=== PATIENT | female | born 1970 | race Caucasian/White ===

== ENCOUNTER 2020-03-14 10:12 | Outpatient (REF) | payer MEDICAID, SELFPAY ==
--- NOTE | 2020-03-14 | MM_ITS ---
EXAMINATION: MM SCREENING DIGITAL BREAST TOMOSYNTHESIS, BILATERAL CLINICAL INFORMATION: Screening. Asymptomatic. The lifetime risk of breast cancer based on the Tyrer-Cuzick Model is 7%. COMPARISON: Mammography: 01/27/2019, 10/17/2016, 04/06/2015 TECHNIQUE: Digital breast tomosynthesis is performed in both the craniocaudal and mediolateral oblique views along with computer-aided detection (CAD). Synthesized 2D images are generated from the tomosynthesis. FINDINGS: The breasts are heterogeneously dense, which may obscure small masses (ACR BI-RADS breast composition Category c). There are scattered bilateral punctate round calcifications in each breast similar to prior study. There is no architectural abnormality. The axilla and skin contours are unremarkable. Right breast has 0.6 cm smooth partially obscured nodularity on MLO view along posterior nipple line, 7 cm from the right nipple not seen with certainty on prior studies. The left breast has smooth 0.5 x 0.7 cm macrolobulated nodularity on CC view central breast 2 cm from nipple. The left breast also has 0.7 cm smooth nodular asymmetry on CC view mid outer quadrant 6.6 cm from nipple. Patient will be recalled for additional targeted ultrasound to further characterize bilateral areas of possible fibrocystic change. IMPRESSION: 1. Right: Nodular asymmetry under 1 cm along posterior nipple line MLO view 7 cm from nipple. 2. Left: Nodular asymmetry retroareolar and outer quadrant, each under 1 cm. ASSESSMENT: BI-RADS 0: Incomplete - Need Additional Imaging Evaluation RECOMMENDATION: 1. Bilateral targeted ultrasound breast. 2. Radiology department staff will contact the patient for additional imaging. This patient's information was entered into a reminder system with a target due date for their next mammogram.
== END 2020-03-14 10:13 | disposition home or self-care (01) ==
LOC: HO.MAMMO 10:12
PROVIDERS: PCP Nurse Practitioner Family; Visit Provider Nurse Practitioner Family
DX: Z12.31 Encounter for screening mammogram for malignant neoplasm of breast (principal)
CPT/HCPCS: 77063; 77067

== ENCOUNTER 2020-03-17 11:45 | Outpatient (REF) | payer MEDICAID, SELFPAY ==
--- NOTE | 2020-03-17 | US_ITS ---
EXAMINATION: US DIAGNOSTIC ULTRASOUND BREAST, RIGHT US DIAGNOSTIC ULTRASOUND BREAST, LEFT CLINICAL INFORMATION: Recall from screening for partially obscured smooth nodule posterior right breast and similar nodularity retroareolar and outer left breast. COMPARISON: Mammography 03/14/2020, 01/27/2019, targeted left breast ultrasound 03/20/2019. TECHNIQUE: Ultrasound of each breast is targeted to the areas of recent mammographic concern. Grayscale imaging and color Doppler are performed without and with harmonics. FINDINGS: Right: There is a simple cyst central 9:00 position mid to posterior depth measuring 0.6 x 0.5 cm corresponding to the nodule on mammography. There is no solid mass or architectural abnormality. No additional findings. Left: There are multiple small simple cysts, largest outer quadrant 3:00 position 4 cm from nipple corresponding to finding on mammography and measuring 0.8 x 0.6 cm. The largest cyst anterior left breast is 0.9 x 0.4 cm corresponds to the retroareolar nodularity on mammography. There is also a intradermal lesion again seen retroareolar 12:00 left breast measuring 0.8 x 0.5 cm compared with prior left breast ultrasound measurements 1.0 x 0.9 x 0.5 cm. There is no solid mass or architectural abnormality. No additional findings. Results are discussed with the patient at time of visit using an strategic planning director. IMPRESSION: 1. Right: Simple cyst 0.6 cm corresponding to nodule on recent mammography. 2. Left: Multiple small simple cysts, 2 of which correspond to nodules on recent mammography. Previously described intradermal cyst retroareolar left breast is slightly decreased in size since prior ultrasound 03/20/2019. ASSESSMENT: BI-RADS 2: Benign RECOMMENDATION: Routine annual mammography screening. This patient's information was entered into a reminder system with a target due date for their next mammogram.
== END 2020-03-17 11:46 | disposition home or self-care (01) ==
LOC: HO.MAMMO 11:45
PROVIDERS: PCP Nurse Practitioner Family; Visit Provider Nurse Practitioner Family
DX: N64.89 Other specified disorders of breast (principal)
CPT/HCPCS: 76642

== ENCOUNTER 2020-07-26 14:30 | Outpatient (REF) | payer MEDICAID, SELFPAY ==
[2020-07-27 09:20] LABS: BV Int Neg Control Negative (Negative); BV Int Pos Control Positive (Positive)
[2020-07-27 14:52] LABS: C. trachomatis RNA TMA NOT DETECTED (NOT DETECTED); N. gonorrhoeae RNA TMA NOT DETECTED (NOT DETECTED)
== END 2020-07-26 14:31 | disposition home or self-care (01) ==
LOC: HO.LAB 14:30
PROVIDERS: PCP Nurse Practitioner Family; Visit Provider Advanced Practice Midwife
DX: Z01.419 Encounter for gynecological examination (general) (routine) without abnormal findings (principal); R10.2 Pelvic and perineal pain; Z20.2 Contact with and (suspected) exposure to infections with a predominantly sexual mode of transmission
CPT/HCPCS: 36415; 87480; 87491; 87510; 87591; 87660

== ENCOUNTER 2021-05-18 13:46 | Outpatient (REF) | payer MEDICAID, SELFPAY ==
--- NOTE | ~2021-05-18 | US_ITS ---
EXAMINATION: US PELVIS CLINICAL INFORMATION: Right ovarian cyst COMPARISON: Ultrasound of 02/09/2020 TECHNIQUE: Ultrasound of the pelvis is performed using both transabdominal and transvaginal transducers along with Doppler. Transvaginal imaging is performed due to inadequate visualization transabdominally. FINDINGS: Uterus: The uterus is retroverted and measures 9.8 x 4.1 x 5.0 cm, with an endometrial thickness of 6 mm. The uterus is smooth in contour and has normal myometrial echogenicity. A intramural posterior fundal fibroid measuring 22 mm is again evident. Adnexa: Left ovary measures 2.5 x 2.0 x 1.2 cm corresponding to a volume of 3.2 mL. There are no adnexal masses. The right ovary is surgically absent. There is no free fluid in the cul-de-sac. US/US pelvic and transvaginal IMPRESSION: 1. Posterior fundal fibroid. 2. Surgically absent right ovary. 3. Unremarkable left ovary.
== END 2021-05-18 13:47 | disposition home or self-care (01) ==
LOC: HO.HMGCX 13:46
PROVIDERS: Visit Provider Registered Nurse
DX: N94.89 Other specified conditions associated with female genital organs and menstrual cycle (principal)
CPT/HCPCS: 76830; 76856

== ENCOUNTER 2021-06-20 13:59 | Outpatient (REF) | payer MEDICAID, SELFPAY ==
--- NOTE | ~2021-06-20 | MM_ITS ---
EXAMINATION: MM SCREENING DIGITAL BREAST TOMOSYNTHESIS, BILATERAL CLINICAL INFORMATION: Screening. Asymptomatic. The lifetime risk of breast cancer based on the Tyrer-Cuzick Model is 9%. COMPARISON: Mammography: 03/14/2020, 01/27/2019, 10/17/2016; bilateral breast ultrasound 03/17/2020. TECHNIQUE: Digital breast tomosynthesis is performed in both the craniocaudal and mediolateral oblique views along with computer-aided detection (CAD). Synthesized 2D images are generated from the tomosynthesis. FINDINGS: The breasts are heterogeneously dense, which may obscure small masses (ACR BI-RADS breast composition Category c). Parenchymal pattern is similar to prior studies. Fibrocystic changes similar to prior exam. There is no developing density or architectural abnormality. Again, there are scattered bilateral punctate round calcifications in both breasts. No significant mass. The axilla and skin contours are unremarkable. No significant changes. MM/MM tomosynthesis screening BI IMPRESSION: No significant changes from prior studies. ASSESSMENT: BI-RADS 2: Benign RECOMMENDATION: Routine annual mammography screening. This patient's information was entered into a reminder system with a target due date for their next mammogram.
== END 2021-06-20 14:00 | disposition home or self-care (01) ==
LOC: HO.MAMMO 13:59
PROVIDERS: Visit Provider Registered Nurse
DX: Z12.31 Encounter for screening mammogram for malignant neoplasm of breast (principal)
CPT/HCPCS: 77063; 77067

== ENCOUNTER 2021-11-29 12:46 | Outpatient (REF) | payer MEDICAID, SELFPAY ==
[2021-11-29 13:09] LABS: COVID-19 Test Positive (Negative)
== END 2021-11-29 12:47 | disposition home or self-care (01) ==
LOC: HO.LAB 12:46
PROVIDERS: Visit Provider Internal Medicine
DX: Z20.822 Contact with and (suspected) exposure to COVID-19 (principal)
CPT/HCPCS: 87635; C9803

== ENCOUNTER 2021-12-08 11:25 | Outpatient (REF) | payer MEDICAID, SELFPAY ==
[2021-12-08 11:58] LABS: COVID-19 Test Positive (Negative); IDNOW Serial# 55D5AD1C
== END 2021-12-08 11:26 | disposition home or self-care (01) ==
LOC: HO.LAB 11:25
PROVIDERS: Visit Provider Internal Medicine
DX: Z20.822 Contact with and (suspected) exposure to COVID-19 (principal)
CPT/HCPCS: 87635; C9803

== ENCOUNTER 2023-10-04 15:08 | Outpatient (REF) | payer OTHER, SELFPAY ==
[2023-10-04 16:07] LABS: MANUAL DIFF FLAG NO
[2023-10-04 16:19] LABS: Basophils Percent Auto 0.2 % (0-2); Eosinophils Absolute Auto 0.1 X10*3/uL (0.0-0.4); Eosinophils Percent Auto 0.8 % (0-4); Hematocrit 33.8 % (37.0-47.0); Hemoglobin 11.2 g/dl (12.0-16.0); Imm Gran Abs Auto 0.03 X10*3/uL (0.00-0.03); Imm Gran Pct Auto 0.3 % (0.0-0.4); Lymphocytes Absolute Auto 2.3 X10*3/uL (1.2-4.9); Lymphocytes Percent Auto 25.8 % (20-40); Mean Corpuscular HGB Conc 33.1 g/dl (31.0-35.0); Mean Corpuscular Hemoglobin 27.6 pg (27.0-33.0); Mean Corpuscular Volume 83.3 fL (80.0-98.0); Mean Platelet Volume 10.4 fL (9.4-12.3); Monocytes Absolute Auto 0.6 X10*3/uL (0.1-1.2); Neutrophils Absolute Auto 5.9 x10*3/uL (2.0-8.3); Neutrophils Percent Auto 65.9 % (45-73); Platelet Count 300 X10*3/uL (160-400); Red Blood Count 4.06 X10*6/uL (4.20-5.50); Red Cell Distribution Width 13.1 % (11.0-16.0); White Blood Count 8.9 X10*3/uL (4.8-10.8)
[2023-10-04 18:58] LABS: Alanine Aminotransferase 34 U/L (0-31); Albumin Level 4.3 g/dL (3.5-5.0); Alkaline Phosphatase 56 U/L (39-117); Anion Gap 14 (12-20); Aspartate Amino Transferase 23 U/L (5-31); Bilirubin Total 0.2 mg/dL (0.0-1.0); Blood Urea Nitrogen 15 mg/dL (9-16); Calcium 9.9 mg/dL (8.4-10.2); Carbon Dioxide 24 mmol/L (22-29); Chloride 103 mmol/L (96-108); Cholesterol 166 mg/dL (<200); Estimated Glomerular Filt Rate > 60; Glucose Random 84 mg/dL (60-115); HDL Cholesterol 54 mg/dL (>40); LDL Cholesterol Calculated 83 mg/dL (<100); Potassium 3.9 mmol/L (3.3-5.1); Sodium 137 mmol/L (135-145); Total Protein 7.4 g/dL (6.5-8.0); Triglycerides 148 mg/dL (<150)
[2023-10-05 03:31] LABS: HIV AB/AG Nonreactive (Nonreactive); HIV Num 1 0.04 S/CO (0.00-0.99); ~HepC Num1 0.24 S/CO (0.00-0.79); ~Hepatitis C Antibody Nonreactive (Nonreactive)
== END 2023-10-04 15:09 | disposition home or self-care (01) ==
LOC: HO.HHCL 15:08
PROVIDERS: Visit Provider General Practice
DX: Z00.00 Encounter for general adult medical examination without abnormal findings (principal)
CPT/HCPCS: 36415; 80053; 80061; 85025; 86803; 87389

== ENCOUNTER 2023-10-17 14:14 | Outpatient (REF) | payer OTHER, SELFPAY ==
--- NOTE | ~2023-10-17 | MM_ITS ---
EXAMINATION: MM SCREENING DIGITAL BREAST TOMOSYNTHESIS, BILATERAL CLINICAL INFORMATION: Screening. Asymptomatic. COMPARISON: Mammography: This study is compared with prior exams dating back to 2019. TECHNIQUE: Digital breast tomosynthesis is performed in both the craniocaudal and mediolateral oblique views along with computer-aided detection (CAD). Synthesized 2D images are generated from the tomosynthesis. FINDINGS: The breasts are heterogeneously dense, which may obscure small masses (ACR BI-RADS breast composition Category c). There are no significant masses, abnormal calcifications, or other abnormalities. There are bilateral, benign calcifications. MM/MM tomosynthesis screening BI IMPRESSION: No mammographic evidence of malignancy. ASSESSMENT: BI-RADS BI-RADS 2 - Benign Findings RECOMMENDATION: Routine annual mammography screening. 1 year F/U This examination should not preclude the clinical evaluation of a suspicious palpable abnormality. This patient's information was entered into a reminder system with a target due date for their next mammogram.
== END 2023-10-17 14:15 | disposition home or self-care (01) ==
LOC: HO.MAMMO 14:14
PROVIDERS: PCP General Practice; Visit Provider General Practice
DX: Z12.31 Encounter for screening mammogram for malignant neoplasm of breast (principal)
CPT/HCPCS: 77063; 77067

== ENCOUNTER → 2023-10-17 14:30 | Outpatient (BNV) | payer OTHER, SELFPAY | PROVIDERS: PCP General Practice; Visit Provider Radiology Diagnostic Radiology | DX: Z12.31 Encounter for screening mammogram for malignant neoplasm of breast (principal) | CPT/HCPCS: 77063; 77067 ==

== ENCOUNTER 2024-03-14 13:42 | Emergency (ER) | payer OTHER, SELFPAY ==
--- NOTE | ~2024-03-14 | US_ITS ---
EXAMINATION: US PELVIS CLINICAL INFORMATION: Left pelvic pain. COMPARISON: Pelvic ultrasound dated May 18, 2021. CT scan of the pelvis dated September 27, 2016. TECHNIQUE: Ultrasound of the pelvis is performed using both transabdominal and transvaginal transducers along with Doppler. Transvaginal imaging is performed due to inadequate visualization transabdominally. FINDINGS: Uterus: The uterus is anteverted and measures 10.4 x 4.8 x 5.1 cm. The double wall endometrial thickness is 7 mm. 2.3 x 2.0 x 1.7 cm intramural/subserosal leiomyoma involving the posterior aspect of the body of the uterus. 0.9 x 0.7 x 0.6 cm exophytic subserosal leiomyoma location of which is not clearly demonstrated by the technologist. The uterus otherwise appears unremarkable in echotexture. Small amount of fluid in the cervical canal, nonspecific. Adnexa: Left ovary measures 2.0 x 1.7 x 1.7 cm and contains a benign-appearing simple cyst or follicle measuring less than 2 cm. No evidence of torsion. Right ovary not visualized by the technologist. No significant free pelvic fluid identified. US/US pelvic and transvaginal IMPRESSION: No acute finding. Electronically signed by: Vitaly Sanchez MD 03/14/2024 04:18 PM EDT
[2024-03-14 13:46] VITALS: BP 138/81; PULSE 75; RESP 16; TEMP 36.6; O2SAT 100; BMI 26.5
--- NOTE | 2024-03-14 13:48 | ED.ABDPAIN ---
HPI - Abdominal Pain General Chief Complaint: Abdominal Pain Stated Complaint: abd pain Time Seen by Provider: 03/14/24 17:04 Source: patient Mode of arrival: ambulatory Limitations: no limitations History of Present Illness ED Provider: Moira HPI narrative: Patient is a 53-year-old female with history of right oophorectomy due to ovarian cysts presenting to the emergency department with complaint of left lower abdominal pain for the past week. She denies fevers, nausea, vomiting, diarrhea or constipation. Does report urinary frequency and mild dysuria. States that pain increases during urination. Denies vaginal bleeding or other vaginal discharge. Pain improves with ibuprofen but returns once medication wears off. Denies any concern for STIs. MD elicited complaint: abdominal pain Pertinent past history: other Onset (ago): week(s) Pain Consistency: colicky Location: LLQ Severity: moderate Quality: aching Radiation: none Migration to: no migration Exacerbating factors: other (Urination) Associated symptoms: denies other symptoms Treatments prior to arrival: NSAIDs Related Data Previous Rx's ?Medication ?Instructions ?Recorded metronidazole 500 mg tablet 500 mg PO BID 7 days #14 tabs 08/01/20 (Flagyl) cefuroxime axetil 250 mg tablet 250 mg PO BID #14 tabs 03/14/24 Allergies Allergy/AdvReac Type Severity Reaction Status Date / Time No Known Allergies Allergy Verified 03/14/24 13:48 Review of Systems Review of Systems As per HPI. Yes all other systems are reviewed and are negative Constitutional: Reports as per HPI PMFSH Past Medical History Medical History Anemia Hx of migraine headaches Ovarian cyst Surgical History History of salpingo-oophorectomy Hx of section Hx of tubal ligation Family History Family History Family/Other Breast cancer Family/Other Cancer Social History Social History Alcohol intake: never Advance Directives: No Advance Directives Information Provided: No Physical Exam ED Vital Signs: Vital Signs - 24 hr 03/14/24 13:46 Temperature 98 F Pulse Rate 75 Respiratory Rate 16 Blood Pressure 138/81 Pulse Oximetry 100 Oxygen Delivery Method Room Air BMI result Body Mass Index 26.5 Vital signs have been reviewed and appear to be correct. Blood pressure normal. Heart rate normal. Respiratory rate normal. Temperature normal. Oxygen saturation normal. Const General: cooperative, healthy appearing and no acute distress Orientation/consciousness: oriented to person, oriented to place, oriented to time and patient oriented x3 Limitations: no limitations HENMT Head: Yes normocephalic and Yes atraumatic Ears: external ears normal General nose exam: Normal external nose present Face and sinus: Yes face symmetric Mouth: oropharynx normal and moist mucous membranes Throat: Yes uvula midline Eyes Pupils: Equal, round and reactive pupils present Neck Neck: Yes normal visual inspection and Yes supple Resp Effort & Inspection: normal respiratory effort and able to speak in complete sentences Auscultation: clear to auscultation bilaterally Cardio Rate: regular rate Rhythm: regular rhythm Heart sounds: S1 normal heart sound present and S2 normal heart sound present GI Palpation (GI): Soft to palpation, Tenderness to palpation present (GI) in the LLQ (mild) and suprapubicly (mild), no guarding and No Rebound tenderness present Auscultation: normoactive bowel sounds General: Yes no CVA tenderness Back/Spine/Pelvis Back: no CVA tenderness Skin General skin exam: elasticity normal and turgor normal Neuro General: oriented to person, oriented to place, oriented to time, patient oriented x3, moves all extremities, no focal motor deficits and CN's II-XI intact bilaterally Cranial nerves: Yes Equal, round and reactive pupils present Cognition (Neuro): normal cognition Extrem General: Yes full ROM, Yes no pedal edema and Yes no calf tenderness Psych Mental Status: mental status grossly normal Affect: normal affect Thought process: Normal thought process present Course Course Course Narrative: This is a Rapid Medical Examination (RME) performed by Ana María Ashby PA-C in triage. Full HPI, ROS, assessment and treatment plan per primary provider in the Main ED. 53 yo female hx of ovarian cysts (s/p right oophorectomy) presents to the ED today from [facility] for eval of lower abd/pelvic pain (L>R) x1 wk. takes motrin w/ temporary relief. denies dysuria, hematuria, vaginal discharge or bleeding. Plan: labs, UA, pelvic US Medical Decision Making Medical Decision Making [facility] Narrative: Patient is a 53-year-old female with history of right oophorectomy due to ovarian cysts presenting to the emergency department with complaint of left lower abdominal pain for the past week. On exam patient is awake, A+Ox3, VS WNL, afebrile, normal neurological exam without focal deficits, physical exam findings as above. Given reported symptoms and physical exam findings, initial differential includes ovarian cyst, UTI, uterine fibroid. Labs notable for anemia not at transfusion level, no evidence of [place]. Ultrasound notable for simple cyst less than 2 cm to left ovary, no evidence of torsion, 2 cm leiomyoma in uterus, no acute findings. My interpretation is in agreement with the radiologist's interpretation. Urinalysis notable for trace leukocytes, 4+ bacteria. Given report of urinary symptoms, will treat with cefuroxime. Discussed with patient that she should follow-up with her OBGYN. Return precautions discussed at bedside. Patient verbalized understanding of and agreement with plan. Differential Diagnosis Differential Diagnoses: The differential diagnosis associated with the presentation includes As per [facility] Admission/Observation Consideration of admission/observation: Escalation of care including admission/observation considered Patient would have been admitted to the hospital had their work up had any findings where hospital admission was appropriate and their clinical presentation warranted hospital admission. Lab Data [facility] Lab Attestation statement: I reviewed the patient's lab results. As per [facility] 03/14/24 14:11 03/14/24 14:11 Labs: Lab Results 03/14/24 03/14/24 Range/Units 14:11 15:14 WBC 7.5 (4.8-10.8) X10*3/uL RBC 3.79 L (4.20-5.50) X10*6/uL Hgb 10.4 L (12.0-16.0) g/dl Hct 31.5 L (37.0-47.0) % MCV 83.1 (80.0-98.0) fL MCH 27.4 (27.0-33.0) pg MCHC 33.0 (31.0-35.0) g/dl RDW 13.2 (11.0-16.0) % Plt Count 259 (160-400) X10*3/uL MPV 9.9 (9.4-12.3) fL Immature Gran % (Auto) 0.4 (0.0-0.4) % Neut % (Auto) 60.4 (45-73) % Lymph % (Auto) 30.3 (20-40) % [place] % (Auto) 7.9 (2-11) % Eos % (Auto) 0.7 (0-4) % Baso % (Auto) 0.3 (0-2) % Lymph # (Auto) 2.3 (1.2-4.9) X10*3/uL [place] # (Auto) 0.6 (0.1-1.2) X10*3/uL Eos # (Auto) 0.1 (0.0-0.4) X10*3/uL Baso # (Auto) 0.0 (0.0-0.2) X10*3/uL Abs Immat Gran (auto) 0.03 (0.00-0.03) X10*3/uL Absolute Neuts (auto) 4.5 (2.0-8.3) x10*3/uL Absolute Nucleated RBC 0.000 (0.0-0.012) X10*3/uL Nucleated RBC % (auto) 0.0 (0.0-0.2) /100WBC Sodium 140 (135-145) mmol/L Potassium 4.0 (3.3-5.1) mmol/L Chloride 107 (96-108) mmol/L Carbon Dioxide 27 (22-29) mmol/L Anion Gap 10 L (12-20) BUN 17 H (9-16) mg/dL Creatinine 0.62 (0.5-1.4) mg/dL Estim Creat Clear Calc 84.3 Estimated GFR > 60 Random Glucose 85 (60-115) mg/dL Calcium 9.1 D (8.4-10.2) mg/dL Magnesium 2.0 (1.6-2.6) mg/dL Total Bilirubin 0.2 (0.0-1.0) mg/dL AST 16 (5-31) U/L ALT 19 (0-31) U/L Alkaline Phosphatase 49 (39-117) U/L Total Protein 6.6 (6.5-8.0) g/dL Albumin 3.9 (3.5-5.0) g/dL Beta HCG, Quant < 2 mIU/mL Urine Color Yellow Urine Appearance Clear Urine pH 6.5 (5.0-9.0) Ur Specific [place] 1.010 (1.005-1.025) Urine Protein Negative (Neg-Trace) mg/dL Urine Glucose (UA) Negative (Negative) mg/dL Urine Ketones Negative (Negative) mg/dL Urine Blood Negative (Negative) Urine Nitrite Negative (Negative) Ur Leukocyte Esterase Trace H (Negative) Urine RBC 0-2 (0-2) /HPF Urine WBC 0-5 (0-5) /HPF Ur Squamous Epith Cells 6-10 (0-2) /HPF Urine Bacteria 4+ (None Seen) Hyaline Casts 0-2 (0-2) /LPF Independent Interpretation I performed an independent interpretation of an: Ultrasound Interpretation: Ultrasound notable for simple cyst less than 2 cm to left ovary, no evidence of torsion, 2 cm leiomyoma in uterus, no acute findings. Radiology Impression Discussion of test interpretation with radiology: I have reviewed the radiologist's reading. Radiologist Impression: US/US pelvic and transvaginal IMPRESSION: No acute finding. External Record Review External record reviewed: Inpatient record, Office record and Outpatient record Prescription Management I considered prescription management with: Antibiotic Discharge Plan Discharge Clinical Impression: Urinary tract infection, Uterine fibroid Patient Disposition: Home, Self-Care Instructions: Urinary Tract Infection in Women (DC), Uterine Artery Embolization for Fibroids (DC) Additional Instructions: You were evaluated in the emergency department today for abdominal pain. Your urinalysis showed evidence of a urinary tract infection you are being treated with antibiotics. Please complete the full course as prescribed even if your symptoms improve. Your ultrasound showed evidence of a uterine fibroid. You can apply warm compresses to your abdomen, use Tylenol/ibuprofen as needed. If your pain persists after treatment for the UTI, follow-up with your CHIEF BUSINESS DEVELOPMENT OFFICER. Return to the emergency department if you develop severe pain, fever, persistent vomiting, heavy vaginal bleeding or any other concerning symptoms. Prescriptions: New cefuroxime axetil 250 mg tablet 250 mg PO BID Qty: 14 0RF No Action metronidazole [Flagyl] 500 mg tablet 500 mg PO BID 7 Days Qty: 14 0RF Print Language: Hebrew
[2024-03-14 14:17] LABS: MANUAL DIFF FLAG NO
[2024-03-14 14:36] LABS: Basophils Percent Auto 0.3 % (0-2); Eosinophils Absolute Auto 0.1 X10*3/uL (0.0-0.4); Eosinophils Percent Auto 0.7 % (0-4); Hematocrit 31.5 % (37.0-47.0); Hemoglobin 10.4 g/dl (12.0-16.0); Imm Gran Abs Auto 0.03 X10*3/uL (0.00-0.03); Imm Gran Pct Auto 0.4 % (0.0-0.4); Lymphocytes Absolute Auto 2.3 X10*3/uL (1.2-4.9); Lymphocytes Percent Auto 30.3 % (20-40); Mean Corpuscular Hemoglobin 27.4 pg (27.0-33.0); Mean Corpuscular Volume 83.1 fL (80.0-98.0); Mean Platelet Volume 9.9 fL (9.4-12.3); Monocytes Absolute Auto 0.6 X10*3/uL (0.1-1.2); Monocytes Percent Auto 7.9 % (2-11); Neutrophils Absolute Auto 4.5 x10*3/uL (2.0-8.3); Neutrophils Percent Auto 60.4 % (45-73); Platelet Count 259 X10*3/uL (160-400); Red Blood Count 3.79 X10*6/uL (4.20-5.50); Red Cell Distribution Width 13.2 % (11.0-16.0); White Blood Count 7.5 X10*3/uL (4.8-10.8)
[2024-03-14 14:37] LABS: Alanine Aminotransferase 19 U/L (0-31); Albumin Level 3.9 g/dL (3.5-5.0); Alkaline Phosphatase 49 U/L (39-117); Anion Gap 10 (12-20); Aspartate Amino Transferase 16 U/L (5-31); Bilirubin Total 0.2 mg/dL (0.0-1.0); Blood Urea Nitrogen 17 mg/dL (9-16); Calcium 9.1 mg/dL (8.4-10.2); Carbon Dioxide 27 mmol/L (22-29); Chloride 107 mmol/L (96-108); Creatinine Clr Calc Pharmacy 84.3; Estimated Glomerular Filt Rate > 60; Glucose Random 85 mg/dL (60-115); Sodium 140 mmol/L (135-145); Total Protein 6.6 g/dL (6.5-8.0)
[2024-03-14 14:44] LABS: HCG Quantitative < 2 mIU/mL
[2024-03-14 15:21] LABS: Appearance Urine Clear; Color Urine Yellow; Glucose Urine UA Negative (Negative); Leukocyte Esterase Urine Trace (Negative); Nitrite Urine Negative (Negative); PH 6.5 (5.0-9.0); UMIC TRIGGER UACC YES; Urine Blood Negative (Negative); Urine Ketones Negative (Negative); Urine Protein Negative (Neg-Trace)
[2024-03-14 15:29] LABS: Bacteria Urine 4+ (None Seen); Hyaline Casts Urine 0-2 /LPF (0-2); RBC Urine 0-2 /HPF (0-2); WBC Urine 0-5 /HPF (0-5)
[2024-03-14 18:33] VITALS: BP 134/78; PULSE 72; RESP 18; TEMP 36.6; O2SAT 99
[2024-03-14] MEDS: cefuroxime axetiL 250 MG TABLET PO (18:37)
[2024-03-14 18:43] VITALS: BP 134/78; PULSE 72; RESP 18; TEMP 36.6; O2SAT 99
== END 2024-03-14 18:43 | disposition home or self-care (01) ==
PROVIDERS: Physician Assistant Medical; Emergency Provider Emergency Medicine; PCP General Practice
DX: N39.0 Urinary tract infection, site not specified (principal); D25.9 Leiomyoma of uterus, unspecified; R10.32 Left lower quadrant pain
CPT/HCPCS: 36415; 76830; 76856; 80053; 81001; 83735; 84702; 85025; 99283; 99284

== ENCOUNTER 2024-07-06 09:35 | Outpatient (REF) | payer OTHER, SELFPAY ==
--- OUTSIDE RECORDS SUMMARY | 2024-07-06 09:58 | XMS_ITS | Encounter Summary ---
Author Organization [employer] Address [address] [place] [address] Care Team Providers Care Iron Assorter Name Role Phone Lexi Lares MD Primary Care Provider [phone] Reason for Visit * Reason Onset Date Comments telephone call 07/03/2024 Encounter Details Date Type Department Care Team ([facility] st Contact Info) Description 07/03/2024 Telephone [facility] [address], [place] [phone] Lexi Lares MD [address] [place], [place] [phone] telephone call Social History Tobacco Use Types Packs/Day Years Used Date Smoking Tobacco: Never Smokeless Tobacco: Never Alcohol Use Standard Drinks/Week Comments Never 0 (1 standard drink = 0.6 oz pur e alcohol) Depression Answer Date Recorded Patient Health Questionnaire-9 Score 0 10/04/2023 Patient Health Questionnaire-9 Score 0 10/04/2023 Last PHQ-9: Questionnaire Data Not on file 0 10/04/2023 Housing Stability Answer Date Recorded What is your housing situation today? I have chalo ball 10/04/[address] you li ve. Do you have problems with any of the following? None of the above 10/04/2023 Food Insecurity Answer Date Recorded Within the past 12 months, y ou worried that your food would run out before you got money to buy more: Never True 10/04/2023 Within the past 12 months,th e food you bought just didn't last and you didn't have enough money to get more: Never True 08/2023 Transportation Answer Date Recorded In the past 12 months, has l ack of transportation kept you from medical appts, meetings, work or from getting things needed for daily living? No 10/04/2023 Utilities Answer Date Recorded In the past 12 months, has t he electric, gas, oil or water company threatened to shut off services in your home? No 06/23/2024 Depression Answer Date Recorded Patient Health Questionnaire-2 Score 0 10/04/2023 Internet Access Answer Date Recorded Internet Access Q1 Yes 06/23/2024 Internet Access Q2 Not on file 06/23/2024 Comments Unknown Sex and Gender Information Value Date Recorded Sex Assigned at Female 04/02/2022 10:15 AM EDT Legal Sex Female 10:15 AM EDT Gender Identity Female 04/02/2022 10:15 AM EDT Sexual Orientation Straight 04/02/2022 10 :15 AM EDT documented as of this encounter Miscellaneous Notes * Telephone Encounter - Urmila Leees - 07/03/2024 11:02 AM EST Pt walked in requesting to change her pcp from to Chris Venegas , pt said she didn't have any complaints she just liked her from her visit from today. documented in this encounter Plan of Treatment Not on file documented as of this encounter Visit Diagnoses Not on filedocumented in this encounter Additional Health Concerns Assessment Noted Time PHQ-9 Depression Total Score: 0 10/04/19 24 2:57 PM EDT documented as of this encounter Care Teams Iron Assorter Relationship Specialty Start Date End Date Lexi Lares MD [address] [place] [phone] PCP - General Family Medicine 03/12/23 documented as of this encounter
--- OUTSIDE RECORDS SUMMARY | 2024-07-06 09:58 | XMS_ITS | Clinical Summary ---
Author Organization [employer] Address [address] [facility] 7[address] [place] [address] Care Team Providers Care Electronic Assembly Name Role Phone Lexi Lares MD Primary Care Provider [phone] Allergies Active Allergy Reactions Criticality Noted Date Comments Shellfish-Derived Products 7 Medications Acetaminophen Extra Strength 500 MG tabletIndications :COVID TAKE 1 TABLET BY MOUTH EVERY 8 HOURS NEEDED FOR MILD PAIN ALTERNATE WITH IBUPROFEN 90 tablet Active EPINEPHrine (Epipen) 0.3 MG/0.3ML injection syringe Inject 0.3 mg into the shoulder, thigh, or buttocks. Active ferrous gluconate (Fergon) 324 (38 Fe) MG tablet Take 1 tablet every Saturday, Saturday, and Saturday by mouth. Take with orange juice to increase absorption. Active fluticasone (Flonase) 50 MCG/ACT nasal sprayIndications: Otitis of right ear Administer 1-2 sprays into each nostril 2 times daily. Shake gently. Before first use, prime pump. After use, clean tip and replace cap. 16 g Active cetirizine (ZyrTEC) 10 MG tabletIndications :Otitis of right ear Take 1 tablet (10 mg) by mouth Once per day. 30 tablet 024 Active ibuprofen 600 MG tabletIndications :Chronic nonintractable headache, unspecified headache type Take 1 tablet (600 mg) by mouth every 8 (eight) hours if needed for headaches. 90 tablet 025 2024 Active cholecalciferol (Vitamin D-3) 50 MCG (2000 UT) capsuleIndication s:Healthcare maintenance Take 1 capsule (50 mcg) by mouth Once per day. 30 capsule 11 Active ferrous gluconate (Fergon) 324 (38 Fe) MG tabletIndications :Iron deficiency Take 1 tablet (324 mg) by mouth with breakfast. 30 tablet 11 025 2025 Active venlafaxine XR (Effexor XR) 37.5 MG 24 hr capsuleIndication s:Hot flashes due to menopause TAKE 1 CAPSULE(37.5 MG) BY MOUTH IN THE MORNING. DO NOT CRUSH OR CHEW 30 capsule 1 023 2024 Discontinued(S nita effects) ibuprofen 600 MG tabletIndications :COVID TAKE 1 TABLET BY MOUTH EVERY 8 HOURS NEEDED FOR PAIN, FEVER, HEADACHE, BODY ACHES. ALTERNATE WITH ACETAMINOPHEN 90 tablet 024 2024 Discontinued(R eorder (will not trigger notification to Pharmacy)) amitriptyline (Elavil) 10 MG tablet take 1 Tablet by oral route every bedtime headache prevention 022 2024 Discontinued(S nita effects) cholecalciferol (Vitamin D-3) 50 MCG (1999 UT) capsule Take 1 capsule by mouth at bed time. 021 2024 Discontinued(R eorder (will not trigger notification to Pharmacy)) amoxicillin-clavu lanate (Augmentin) 875-125 MG tabletIndications :Otitis of right ear Take 1 tablet by mouth 2 times daily for 7 days. 14 tablet 024 2024 Discontinued(T herapy completed) Active Problems Problem Noted Date Diagnosed Date Otitis of right ear 05/28/2024 Assessment & Plan (05/28/2024 10:25 AM EST): Symptomatology and physical examination indicative of this Plan: Antihistaminics, Nasal Steroids, Abx Rapid Flu and Covid Negative Follow up if worsening or no improvement Vitamin D deficiency 03/06/2023 Onychomycosis 03/06/2023 History of right salpingo-oophorectomy Seasonal allergic rhinitis 04/21/2015 Encounters Date Type Department Care Team Description 07/03/2024 10:30 AM EST Office Visit [facility] [address] [place] [phone] Chris Venegas CNP Chronic nonintractable headache, unspecified headache type (Primary Dx); Healthcare maintenance; Iron deficiency 07/03/2024 Telephone [facility] [address] [place] [phone] Lexi Lares MD telephone call 06/23/2024 Patient Outreach [facility] [address] [place] [address] [phone] Lexi Lares MD Pre-visit Planning (SDOH Screening negative and Tobacco screening negative) 06/04/[address] [phone] Lexi Lares MD Chart Prep 05/28/2024 10:20 AM EST Office Visit [facility] [address] [place] [phone] Arnulfo Moser MD Otitis of right ear (Primary Dx) 05/28/[address] [phone] Lexi Lares MD telephone call from Last 3 Months Immunizations Name Administration Dates Next Due Hep A, Adult 05/05/2021,05/21/2019 Hep B, Adolescent or Pediatric 07/13/2003,2002,02/20/2002 Hep B, adult 02/15/2014 Influenza Injectable Quadriv alant Preservative Free IIV4 MDCK 03/02/2023,02/24/2022 Influenza injectable quadriv alent preservative free 02/28/2021,02/28/2020,02/24/2019 Influenza, IIV3, injectable 02/15/2014 Pfizer Covid-19 Vaccine 12+ 02/24/2022 Pfizer Covid-19 Vaccine 12+ Bivalent 02/24/2022 TD (adult), 2 Lf tetanus tox oid, preservative free, adsorbed 05/05/2021,04/02/2006,07/06/2004 Tdap 12/14/2010 Zoster, Recombinant 12/23/2022,10/21/2022 Social History Tobacco Use Types Packs/Day Years Used Date Smoking Tobacco: Never Smokeless Tobacco: Never Tobacco Cessation:Counseling Given: Not Answered Alcohol Use Standard Drinks/Week Comments Never 0 [...] Orientation Straight 04/02/2022 10 :15 AM EDT Last Filed Vital Signs Vital Sign Reading Time Taken Comments Blood Pressure 132/81 07/03/2024 10:32 AM EST Pulse 74 07/03/2024 10:32 AM EST Temperature 36.6 ??C (97.8 ??F) 07/03/2024 10:[address] Respiratory Rate 16 07/03/2024 10:32 AM EST Oxygen Saturation 97% 07/03/2024 10:32 AM EST Inhaled Oxygen Concentration - - Weight 59.9 kg (132 lb) 07/03/2024 10:32 AM EST Height 149.9 cm (4' 11 ) 07/03/2024 10:32 AM EST Body Mass Index 26.66 07/03/2024 10:32 AM EST Plan of Treatment Health Maintenance Due Date Last Done Comments CT Colonography 1972 Colonoscopy 1972 FIT 1972 FOBT 1972 Sigmoidoscopy 1972 Family Planning (PISQ) 1987 Hepatitis B Vaccines (2 of 3 - 19+ 3-dose series) 03/15/2014 02/15/2014, 07/13/2003, 06/19/2002, Additional history exists Pneumococcal Vaccine: 50+ Years (1 of 1 - PCV) 2022 Alcohol/Substance Use Screening 10/03/2024 10/04/2023 Depression Screening 10/03/2024 10/04/2023, 10/04/19 Tobacco Screening 10/03/2024 10/04/2023 SDOH Screening 06/23/2025 06/23/2024 Mammogram 10/16/2025 10/17/2023, 06/03, 01/28/2019 Pap Smear 10/23/2025 10/23/2022 Colorectal Cancer Screening 10/21/2026 FIT DNA/Cologuard 10/21/2026 10/22/2023 Cervical Cancer Screening 10/24/2027 HPV/Cotest 10/24/2027 10/23/2022 DTaP/Tdap/Td Vaccines (3 - Td or Tdap) 05/05/2031 05/05/2021, 12/14/2010, 04/02/2006, Additional history exists RSV Patients and Patients Aged 60 years or older (1 - 1-dose 75+ series) 2047 Hepatitis A Vaccines Aged Out 05/05/2021, 05/21/20 19 No longer eligible based on patient's age to complete this topic Zoster Vaccines Completed 12/23/2022, 10/21/2022 HIV Screening Completed 10/04/2023 Hepatitis C Screening Completed 10/04/2023 COVID-19 Vaccine Completed 03/18/2024, , 02/24/2022, Additional history exists Influenza Vaccine Completed 03/18/2024, , 02/24/2022, Additional history exists HIB Vaccines Aged Out No longer eligi ble based on patient's age to complete this topic HPV Vaccines Aged Out No longer eligi ble based on patient's age to complete this topic IPV Vaccines Aged Out No longer eligi ble based on patient's age to complete this topic Meningococcal Vaccine Aged Out No andreea farhan eligible based on patient's age to complete this topic RSV under 20 months Aged Out No longe r eligible based on patient's age to complete this topic Rotavirus Vaccines Aged Out No longer eligible based on patient's age to complete this topic Procedures Procedure Name Priority Date/Time Associated Diagnosis Comments POCT INFLUENZA B (ID NOW RAPID MOLECULAR) Routine 05/28/2024 10:45 AM EST Otitis of right ear POCT INFLUENZA A (ID NOW RAPID MOLECULAR) Routine 05/28/2024 10:45 AM EST Otitis of right ear POCT RAPID COVID ANTIGEN Routine 05/28/2024 10:45 AM EST Otitis of right ear LAB COLOGUARD?? COLON CANCER SCREEN Routine 10/22/2023 7:55 AM EDT Screening for colon cancer BI MAMMOGRAM SCREENING TOMOSYNTHESIS BILATERAL Routine 10/17/2023 2:44 PM EDT Screening mammogram for breast cancer HEPATITIS C AB W/REFL TO HCV RNA, QN, PCR Routine 10/04/2023 3:09 PM EDT Healthy adult on routine physical examination HIV 1/2 ANTIGEN/ANTIBODY, FOURTH GENERATION W/RFL Routine 10/04/2023 3:09 PM EDT Healthy adult on routine physical examination THINPREP IMAGING PAP AND HPV MRNA E6/E7 WITH REFLEX TO HPV 16,18/45 Routine 10/23/2022 3:20 PM EDT Encounter for cervical Pap smear with pelvic exam from Last 3 Months or Most Recently Relevant to Health Maintenance Results * Influenza B (ID NOW Rapid Molecular) (05/28/2024 10:45 AM EST) [facility] Influenza B Negative Negative, Indeterminate [facility] Swab 05/28/2024 10:4 5 AM EST us Arnulfo Watson MD POINT OF CARE TEST EN TER/EDIT ORDERABLES Final Result Performing Organization Address [facility]/ZIP Co de Phone Number [facility] [address] [place] [phone] * Influenza A (ID NOW Rapid Molecular) (05/28/2024 10:45 AM EST) [facility] Influenza A Negative Negative, Indeterminate [facility] Swab 05/28/2024 10:4 5 AM EST Arnulfo Watson MD POINT OF CARE TEST EN TER/EDIT ORDERABLES Final Result Performing Organization Address [facility] Co de Phone Number [facility] [address] [place] [phone] * POCT Rapid COVID Ag (05/28/2024 10:45 AM EST) [facility] Rapid COVID Ag Negative [facility] Swab 05/28/2024 10:4 5 AM EST us Arnulfo Watson MD POINT OF CARE TEST EN TER/EDIT ORDERABLES Final Result Performing Organization Address [facility] Co de Phone Number [facility] [address] [place] [phone] * Cologuard?? colon cancer screening (10/22/2023 7:55 AM EDT) [facility] Cologuard Result Negative Negative 10/29/19 24 5:43 PM EDT [facility] (CLIA #:[id number]) Comment: NEGATIVE TEST RESULT. A negative Cologuard result indicates a low likelihood that a colorectal cancer (CRC) or advanced adenoma (adenomatous polyps with more advanced pre-malignant features) ??is present. The chance that a person with a negative Cologuard test has a colorectal cancer is less than 1 in 1500 (negative predictive value >99.9%) or has an ??advanced adenoma is less than ??5.3% (negative predictive value 94.7%). These data are based on a prospective cross-sectional study of 10,000 individuals at average risk for colorectal cancer who were screened with both Cologuard and colonoscopy. (Cody Aiken al, N Engl J Med 2014;370(14):1286- 1297) The normal value (reference range) for this assay is negative. COLOGUARD RE-SCREENING RECOMMENDATION: Periodic colorectal cancer screening is an important part of preventive healthcare for asymptomatic individuals at average risk for colorectal cancer. ??Following a negative Cologuard result, the [place] and U.S. Multi-Society Task Force screening guidelines recommend a Cologuard re-screening interval of 3 years. References: [place] Guideline for Colorectal Cancer Screening: https://www.cancer.org/cancer/gwiyz-gxknwy-smwrcz/xwfuvqxzp-dzmjpdztq-ivfwfla/ac s-rec ommendations.html.; Juancarlos DK, Cheyanne MONTES DE OCA, German MaldonadoK, Colorectal Cancer Screening: Recommendations for Physicians and Patients from the U.S. Multi-Society Task Force on Colorectal Cancer Screening , Am J Gastroenterology 2017; 112:9776-6928. TEST DESCRIPTION: Composite algorithmic analysis of stool DNA-biomarkers with hemoglobin immunoassay. ?? Quantitative values of individual biomarkers are not reportable and are not associated with individual biomarker result reference ranges. Cologuard is intended for colorectal cancer screening of adults of either sex, 45 years or older, who are at average-risk for colorectal cancer (CRC). Cologuard has been approved for use by the U.S. FDA. The performance of Cologuard was established in a cross sectional study of average-risk adults aged 50-84. Cologuard performance in patients ages 45 to 49 years was estimated by sub-group analysis of near-age groups. Colonoscopies performed for a positive result may find as the most clinically significant lesion: colorectal cancer [4.0%], advanced adenoma (including sessile serrated polyps greater than or equal to 1cm diameter) [20%] or non- advanced adenoma [31%]; or no colorectal neoplasia [45%]. These estimates are derived from a prospective cross-sectional screening study of 10,000 individuals at average risk for colorectal cancer who were screened with both Cologuard and colonoscopy. (Cody Klein et al, N Engl J Med 2014;370(14):3023-9246.) Cologuard may produce a false negative or false positive result (no colorectal cancer or precancerous polyp present at colonoscopy follow up). A negative Cologuard test result does not guarantee the absence of CRC or advanced adenoma (pre-cancer). The current Cologuard screening interval is every 3 years. ([place] [employer] and U.S. Multi-Society Task Force). Cologuard performance data in a 10,000 patient pivotal study using colonoscopy as the reference method can be accessed at the following location: www.[employer]/results. Additional description of the Cologuard test process, warnings and precautions can be found at www.CreditPing.comogAchates Powerrd.The Moment. Stool specimen (specimen) 10/22/2023 7:55 AM EDT 10/23/2023 12:10 PM EDT Lexi Lares MD LAB MOLECULAR DIAGNOSTICS DIEUDONNE GARZA Final Result [facility] (CLIA #:[id number]) [place] [address] [address], * BI Mammogram Screening Tomosynthesis Bilateral (10/17/2023 2:44 PM EDT) Anatomical Region Laterality Modality Breast Bilateral Mammography 10/17/2023 2:44 PM EDT Narrative 11/18/2023 7:08 AM EDT ? [facility] ? [address] ?[place] [address] ? Mammography Report ? Signed ? Patient: Bill,Patricia ?MR#: [id number] ?? [id number] ? : 1970 ?Acct:[id number] ? Age/Sex: 53 / F ?ADM Date: 05/16/24 ? Loc: HO.MAMMO ? Attending Dr: Lexi Lares MD ? Ordering Physician: Lexi Lares ?Results: 2Benign F ?? indings ? Date of Service: 10/17/23 ?Follow Up: 1 Year From Orig ?? inal Mammogram ? Procedure(s): MM tomosynthesis screening BI ?? Accession Number(s): [id number] ? cc: Lexi Lares ? EXAMINATION: ?? MM SCREENING DIGITAL BREAST TOMOSYNTHESIS, BILATERAL ? CLINICAL INFORMATION: ? Screening. Asymptomatic. ? COMPARISON: ?? Mammography: This study is compared with prior exams dating back to ?? 2019. ? TECHNIQUE: ?? Digital breast tomosynthesis is performed in both the craniocaudal and ?? mediolateral oblique views along with computer-aided detection (CAD). ?? Synthesized 2D images are generated from the tomosynthesis. ? FINDINGS: ?? The breasts are heterogeneously dense, which may obscure small masses ?? (ACR BI-RADS breast composition Category c). ? There are no significant masses, abnormal calcifications, or other ?? abnormalities. ?? There are bilateral, benign calcifications. ? MM/MM tomosynthesis screening BI ?? IMPRESSION: ?? No mammographic evidence of malignancy. ? ASSESSMENT: ? BI-RADS BI-RADS 2 - Benign Findings ? RECOMMENDATION: ?? Routine annual mammography screening. ? 1 year F/U ? This examination should not preclude the clinical evaluation of a ?? suspicious palpable abnormality. ? This patient's information was entered into a reminder system with a ?? target due date for their next mammogram. ? Dictated By: ?Alyssa Clifford MD ? Signed By: ?<Electronically signed by Alyssa Clifford MD in OV> ? 11/18/23 07 ? DD/ 1444 ? TD/TT: ? Protective Officer: ? Procedure Note Donotuseinterpreter, Image - 11/18/2023 [facility] [address] [place], [place] [address] Mammography Report Signed Patient: Shell Khan#: [id number] : 1970Acct:[id number] Age/Sex: 53 / FADM Date: 10/17/23 Loc: HO.MAMMO Attending Dr: Lexi Lares MD Ordering Physician: Kj Laresults: 2Benign F indings Date of Service: 10/17/23Follow Up: 1 Year From Orig inal Mammogram Procedure(s): MM tomosynthesis screening BI Accession Number(s): [id number] cc: Lexi Lares EXAMINATION: MM SCREENING DIGITAL BREAST TOMOSYNTHESIS, BILATERAL CLINICAL INFORMATION: Screening. Asymptomatic. COMPARISON: Mammography: This study is compared with prior exams dating back to 2019. TECHNIQUE: Digital breast tomosynthesis is performed in both the craniocaudal and mediolateral oblique views along with computer-aided detection (CAD). Synthesized 2D images are generated from the tomosynthesis. FINDINGS: The breasts are heterogeneously dense, which may obscure small masses (ACR BI-RADS breast composition Category c). There are no significant masses, abnormal calcifications, or other abnormalities. There are bilateral, benign calcifications. MM/MM tomosynthesis screening BI IMPRESSION: No mammographic evidence of malignancy. ASSESSMENT: BI-RADS BI-RADS 2 - Benign Findings RECOMMENDATION: Routine annual mammography screening. 1 year F/U This examination should not preclude the clinical evaluation of a suspicious palpable abnormality. This patient's information was entered into a reminder system with a target due date for their next mammogram. Dictated By: Alyssa Clifford MD Signed By: <Electronically signed by Alyssa Clifford MD in OV> 11/18/23 0705 DD/ 1444 TD/TT: Protective Officer: Lexi Lares MD IMG BI PROCEDURES Final Result * Hepatitis C Antibody with Reflex to HCV, RNA, Quantitative, Real-Time PCR (10/04/2023 3:09 PM EDT) Hepatitis C Antibody Nonreactive Nonreactive [facility] Comment:Antibodies to HCV no t detected; does not exclude early acuteHCV infection. Blood Venous blood specimen / Unknown 10/04/2023 3:09 PM EDT 10/04/2023 4:02 PM EDT Lexi Lares MD LAB BLOOD ORDERABLES Final Res ult [facility] [address] [place] [phone] * HIV-1/2 Antigen and Antibodies, Fourth Generation, with Reflexes (10/04/2023 3:09 PM EDT) HIV AB/AG Nonreactive Nonreactive [facility] Comment:HIV-1 p24 Ag and/or HIV-1/HIV-2 Ab not detected.A test result that is nonreactive does not exclude thepossibility of exposure to or infection with HIV-1 and/orHIV-2. Nonreactive results in this assay for individualswith prior exposure to HIV-1 and/or HIV-2 may be due toantigen and antibody levels that are below the limit ofdetection of this assay.The [employer] HIV Ag/Ab Combo assay result andsupplemental assay results should be interpreted inconjunction with the patient's clinical presentation,history and other laboratory results. If the results areinconsistent with clinical evidence, additional testing issuggested to confirm the result. Blood Venous blood specimen / Unknown 10/04/2023 3:09 PM EDT 10/04/2023 4:02 PM EDT Lexi Lares MD LAB BLOOD ORDERABLES Final Res ult [facility] [address] [place] [phone] * Thinprep TIS PAP And HPV mRNA E6/E7 With Reflex To HPV 16,18/45 (10/23/2022 3:20 PM EDT) Clinical Information: 52 YEAR OLD FEMALE WITH NO VAGINAL [facility] LMP: 20,230,517 [facility] Prev. PAP: NONE GIVEN [facility] Prev. BX: NO [facility] SOURCE: None given [facility] Statement Of Adequacy: [facility] Comment: Satisfactory for evaluation. Endocervical/transformation zone component present. Interpretation/ Result: Negative for intraepithelial lesion or malignancy. [facility] COMMENT: This Pap test has been evaluated with computer assisted technology. [facility] Cytotechnologis t: [facility] Comment: KR, CT(ASCP) CT screening location: [address] ??[address] (Always Message) [facility] Comment: EXPLANATORY NOTE: The Pap is a screening test for cervical cancer. It is not a diagnostic test and is subject to false negative and false positive results. It is most reliable when a satisfactory sample, regularly obtained, is submitted with relevant clinical findings and history, and when the Pap result is evaluated along with historic and current clinical information. HPV nRNA E6/E7 Not Detected Not Detected [facility] Comment: Methodology: [employer]itor [employer]-Mediated Amplification This assay detects E6/E7 viral messenger RNA (mRNA) from 14 high-risk HPV types (16,18,31,33,35,39,45,51,52,56,58,59,66,68). Cervical sources are required for HPV testing. If a vaginal source from a patient who has had a total hysterectomy with removal of cervix was submitted, please contact the testing laboratory for alternative testing options. For additional information, please refer to http://education.OtherInbox/faq/DOU141y9 (This link if provided for information/ educational purposes only.) Genital 10/23/2022 3:20 PM EDT 10/24/2022 6:47 AM EDT us Solange Noyola ASSOCIATE PROGRAMMER LAB PATHOLOGY ORDERABLES F inal Result [facility] [address], [place] [phone] [facility] [address] [place] [phone] from Last 3 Months or Most Recently Relevant to Health Maintenance Insurance [facility] Care Teams Electronic Assembly Relationship Specialty Start Date End Date Lexi Lares MD [address] [place] [address] PCP - General Family Medicine 03/12/23
--- OUTSIDE RECORDS SUMMARY | 2024-07-06 09:58 | XMS_ITS | Encounter Summary ---
Author Organization [employer] Address [address] [facility] 7[address] [place] [address] Care Team Providers Care Bike Technician Name Role Phone Lexi Lares MD Primary Care Provider [phone] Reason for Visit * Reason Comments Pre-visit Planning SDOH Screening negat arthur and Tobacco screening negative Encounter Details Date Type Department Care Team ([facility] st Contact Info) Description 06/23/2024 Patient Outreach [facility] [address] [place] [address] Lexi Lares MD [address] [place] [address] Pre-visit Planning (SDOH Screening negative and Tobacco screening negative) Social History Tobacco Use Types Packs/Day Years [...] your housing situation today? I have chalo sing 10/04/[address] you li [...] AM EDT documented as of this encounter Progress Notes * Jasmyne Tierney - 06/23/2024 9:59 AM EST JENNIFER Price placed successful outbound call to patient for pre-visit planning. Patient name and confirmed. Patient confirms appt date and time, and has transportation arrangements. Biggest concern for appointment at this time is no concerns. Patient advised to bring to appointment a photo id and insurance card. Appropriate screenings completed in anticipation of appointment. documented in this encounter Plan of Treatment Not on file documented as of this encounter Visit Diagnoses Not on filedocumented in this encounter Additional Health Concerns Assessment Noted Time PHQ-9 Depression Total Score: 0 10/04/19 24 2:57 PM EDT documented as of this encounter Care Teams Bike Technician Relationship Specialty Start Date End Date Lexi Lares MD [address] [place] [address] PCP - General Family Medicine 03/12/23 documented as of this encounter
--- OUTSIDE RECORDS SUMMARY | 2024-07-06 09:58 | XMS_ITS | Encounter Summary ---
Author Organization [employer] Address [address] [facility] 7t [place] [address] Care Team Providers Care Laborer [employer] Name Role Phone Lexi Lares MD Primary Care Provider [phone] Reason for Referral * Consultation (Routine) - Authorized Specialty Diagnoses / Procedures Referred By Dariusz hill Referred To Contact Optometry Diagnoses Healthcare maintenance Chris Venegas CNP [address] [place] [address] Phone: tel: fax: [facility] OPT[facility] [address] [place] [phone] Phone: tel: fax: Referral ID Status Reason Start Date Expiration Date Visits Requested Visits Authorized [id number] Authorized Consult and Treat 07/03/2024 07/03/2025 1 1 Reason for Visit * Reason Comments Employment Physical Encounter Details Date Type Department Care Team (Latest Contact Info) Description 07/03/2024 10:30 AM EST Office Visit [facility] [address] [place] [phone] Chris Venegas CNP [address] [place] [address] Chronic nonintractable headache, unspecified headache type (Primary Dx); Healthcare maintenance; Iron deficiency Social History Tobacco Use Types Packs/Day Years [...] AM EDT documented as of this encounter Last Filed Vital Signs Vital Sign Reading [...] Mass Index 26.66 07/03/2024 10:32 AM EST documented in this encounter Plan of Treatment Scheduled Orders Name Type Priority Associated Diagnoses Orde r Schedule CBC auto differential Lab Routine Iron deficiency Expected: 07/03/2024 (Approximate), Expires: 07/03/2025 Hemoglobin A1c Lab Routine Healthcare maintenance Expected: 07/03/2024 (Approximate), Expires: 07/03/2025 Lipid Panel, Standard Lab Routine Healthcare maintenance Expected: 07/03/2024 (Approximate), Expires: 07/03/2025 Scheduled Referrals Name Type Priority Associated Diagnoses Orde r Schedule Referral to [facility] Eye Care Outpatient Referral Routine Healthcare maintenance Expected: 07/03/2024 (Approximate), Expires: 07/03/2025 documented as of this encounter Visit Diagnoses Diagnosis Chronic nonintractable headache, unspecified headache type- Primary Healthcare maintenance Iron deficiency Disorders of iron metabolism documented in this encounter Additional Health Concerns Assessment Noted Time PHQ-9 Depression Total Score: 0 10/04/19 24 2:57 PM EDT documented as of this encounter Care Teams Laborer Golf Course Relationship Specialty Start Date End Date Lexi Lares MD [address] [place] [address] PCP - General Family Medicine 03/12/23 documented as of this encounter
[2024-07-06 11:34] LABS: MANUAL DIFF FLAG NO
[2024-07-06 11:42] LABS: Basophils Percent Auto 0.1 % (0-2); Eosinophils Absolute Auto 0.1 X10*3/uL (0.0-0.4); Eosinophils Percent Auto 0.8 % (0-4); Hematocrit 34.2 % (37.0-47.0); Hemoglobin 11.4 g/dl (12.0-16.0); Imm Gran Abs Auto 0.04 X10*3/uL (0.00-0.03); Imm Gran Pct Auto 0.6 % (0.0-0.4); Lymphocytes Absolute Auto 1.9 X10*3/uL (1.2-4.9); Lymphocytes Percent Auto 27.3 % (20-40); Mean Corpuscular HGB Conc 33.3 g/dl (31.0-35.0); Mean Corpuscular Hemoglobin 27.9 pg (27.0-33.0); Mean Corpuscular Volume 83.6 fL (80.0-98.0); Mean Platelet Volume 10.6 fL (9.4-12.3); Monocytes Absolute Auto 0.5 X10*3/uL (0.1-1.2); Monocytes Percent Auto 6.8 % (2-11); Neutrophils Absolute Auto 4.6 x10*3/uL (2.0-8.3); Neutrophils Percent Auto 64.4 % (45-73); Platelet Count 266 X10*3/uL (160-400); Red Blood Count 4.09 X10*6/uL (4.20-5.50); Red Cell Distribution Width 12.8 % (11.0-16.0); White Blood Count 7.1 X10*3/uL (4.8-10.8)
[2024-07-06 12:00] LABS: Estimated Average Glucose 114 mg/dL; Hemoglobin A1C 111.7978 umol/L; Hemoglobin A1c % 5.6 % (<6.0); Total Hemoglobin (HGBA1C) 2982.7672 umol/L
[2024-07-06 12:13] LABS: Cholesterol 182 mg/dL (<200); HDL Cholesterol 53 mg/dL (>40); LDL Cholesterol Calculated 100 mg/dL (<100); Triglycerides 147 mg/dL (<150)
== END 2024-07-06 09:36 | disposition home or self-care (01) ==
LOC: HO.HHCL 09:35
DX: Z00.00 Encounter for general adult medical examination without abnormal findings (principal); E61.1 Iron deficiency
CPT/HCPCS: 36415; 80061; 83036; 85025

== ENCOUNTER 2024-10-01 13:25 | Outpatient (REF) | payer OTHER, SELFPAY ==
--- OUTSIDE RECORDS SUMMARY | 2024-10-01 15:49 | XMS_ITS | Clinical Summary ---
Author Organization [employer] Address [address] [facility] 7t [place] [address] Care Team Providers Care Care Director Rn Name Role Phone Lexi Lares MD Primary Care Provider [phone] Allergies Active Allergy Reactions Criticality Noted Date Comments Shellfish-Derived Products 7 Medications Acetaminophen Extra Strength 500 MG tabletIndication s:COVID TAKE 1 TABLET BY MOUTH EVERY 8 HOURS NEEDED FOR MILD PAIN ALTERNATE WITH IBUPROFEN 90 tablet 4 Active EPINEPHrine (Epipen) 0.3 MG/0.3ML injection syringe Inject 0.3 mg into the shoulder, thigh, or buttocks. 2 Active ferrous gluconate (Fergon) 324 (38 Fe) MG tablet Take 1 tablet every Saturday, Saturday, and Saturday by mouth. Take with orange juice to increase absorption. 2 Active fluticasone (Flonase) 50 MCG/ACT nasal sprayIndications :Otitis of right ear Administer 1-2 sprays into each nostril 2 times daily. Shake gently. Before first use, prime pump. After use, clean tip and replace cap. 16 g 4 Active cetirizine (ZyrTEC) 10 MG tabletIndication s:Otitis of right ear Take 1 tablet (10 mg) by mouth Once per day. 30 tablet 4 Active cholecalciferol (Vitamin D-3) 50 MCG (1999) capsuleIndicatio ns:Healthcare maintenance Take 1 capsule (50 mcg) by mouth Once per day. 30 capsule 11 5 Active ferrous gluconate (Fergon) 324 (38 Fe) MG tabletIndication s:Iron deficiency Take 1 tablet (324 mg) by mouth with breakfast. 30 tablet 11 5 07/03/19 26 Active cyclobenzaprine (Flexeril) 10 MG tabletIndication s:Low back pain, unspecified back pain laterality, unspecified chronicity, unspecified whether sciatica present One tab PO at bedtime prn back pain, do not drive with medicaion 10 tablet 5 Active Active Problems Problem Noted Date Diagnosed Date Otitis of right ear 05/28/2024 Assessment & Plan (05/28/2024 10:25 AM EST): Symptomatology and physical examination indicative of this Plan: Antihistaminics, Nasal Steroids, Abx Rapid Flu and Covid Negative Follow up if worsening or no improvement Vitamin D deficiency 03/06/2023 Onychomycosis 03/06/2023 History of right salpingo-oophorectomy 1 Seasonal allergic rhinitis 04/21/2015 Encounters Date Type Department Care Team Description 10/01/2024 9:20 AM EDT Office Visit [facility] [address] [place] [phone] Bobby Álvarez MD Pelvic pain (Primary Dx); Low back pain, unspecified back pain laterality, unspecified chronicity, unspecified whether sciatica present 10/01/2024 Travel 09/04/2024 Telephone [facility] [address] [place] [phone] Lexi Lares MD Nurse Triage 07/14/2024 Telephone [facility] [address] [place] [phone] Lexi Lares MD Glass Crusher Form (The patient called to check on the status of a [facility] Family Glass Crusher Medical Form. I informed her that the forms nurse will check to see if the form is still with the provider, and I will call her back with an update. She verbalized understanding.) from Last 3 Months Immunizations Name Administration [...] Sign Reading Time Taken Comments Blood Pressure 135/77 10/01/2024 9:15 AM EDT Pulse 99 10/01/2024 9:15 AM EDT Temperature 36.7 ??C (98.1 ??F) 10/01/2024 9:15 AM ED T Respiratory Rate 16 10/01/2024 9:15 AM EDT Oxygen Saturation 98% 10/01/2024 9:15 AM EDT Inhaled Oxygen Concentration - - Weight 61.2 kg (135 lb) 10/01/2024 9:15 AM EDT Height 149.9 cm (4' 11 ) 07/03/2024 10:32 AM EST Body Mass Index 27.27 07/03/2024 10:32 AM EST Plan of Treatment Upcoming Encounters Date Type Department Care Team (Late st Contact Info) Description 10/15/2024 3:15 PM EDT Office Visit [facility] OPTOMETRY [address] [place] [address] Brandee Lopez, OD [address] [place] [address] Health Maintenance Due Date Last Done Comments CT Colonography 1972 Colonoscopy 1972 FIT 1972 FOBT 1972 Sigmoidoscopy 1970 Family Planning (PISQ) 1987 Hepatitis B Vaccines (2 of 3 - 19+ 3-dose series) 03/15/2014 02/15/2014, 07/13/2003, 06/19/2002, Additional history exists Pneumococcal Vaccine: 50+ Years (1 of 1 - PCV) 2022 Alcohol/Substance Use Screening 10/03/2024 10/04/2023 Depression Screening 10/03/2024 10/04/2023, 10/04/19 24 Tobacco Screening 10/03/2024 10/04/2023 SDOH Screening 06/23/2025 [...] Name Priority Date/Time Associated Diagnosis Comments POCT , URINE Routine 10/01/2024 9:50 AM EDT Pelvic pain POCT URINALYSIS DIPSTICK Routine 10/01/2024 9:22 AM EDT Low back pain, unspecified back pain laterality, unspecified chronicity, unspecified whether sciatica present LIPID PANEL, STANDARD Routine 07/06/2024 9:38 AM EST Healthcare maintenance HEMOGLOBIN A1C Routine 07/06/2024 9:38 AM EST Healthcare maintenance CBC WITH AUTO DIFFERENTIAL Routine 07/06/2024 9:38 AM EST Iron deficiency LAB COLOGUARD?? COLON CANCER SCREEN Routine 10/22/2023 [...] Recently Relevant to Health Maintenance Results * POCT , urine manually resulted (10/01/2024 9:50 AM EDT) Preg Test, Ur Negative Negative, Indeterminate, None Detected, Invalid, Specimen unsatisfactory for evaluation, Weakly Positive Urine 10/01/2024 9:50 AM EDT Bobby Álvarez MD POINT OF CARE TEST ENTER/EDIT OR DERABLES Final Result * (ABNORMAL) POCT urinalysis dipstick manually resulted (10/01/2024 9:22 AM EDT) Color, UA Yellow Clarity, UA Clear Glucose, UA Negative Bilirubin, UA Negative Ketones, UA Negative Spec Grav, UA 1.025 Blood, UA Positive(A) Negative, None Detected Comment:small pH, UA 5.5 Protein, UA Negative Urobilinogen, UA 0.2 Leukocytes, UA Negative Negative, Rare, Trace Nitrite, UA Negative Negative, None Detected Appearance, UA OK Urine 10/01/2024 9:22 AM EDT Bobby Álvarez MD POINT OF CARE TEST ENTER/EDIT OR DERABLES Final Result * (ABNORMAL) CBC auto differential (07/06/2024 9:38 AM EST) White Blood Count 7.1 4.8 - 10.8 X10*3/uL [facility] Red Blood Count 4.09(L) 4.20 - 5.50 X10*6/uL [facility] Hemoglobin 11.4(L) 12.0 - 16.0 g/dl [facility] Hematocrit 34.2(L) 37.0 - 47.0 % [facility] Mean Corpuscular Volume 83.6 80.0 - 98.0 fL [facility] Mean Corpuscular Hemoglobin 27.9 27.0 - 33.0 pg [facility] Mean Corpuscular HGB Conc 33.3 31.0 - 35.0 g/dl [facility] Red Cell Distribution Width 12.8 11.0 - 16.0 % [facility] Platelet Count 266 160 - 400 X10*3/uL [facility] Mean Platelet Volume 10.6 9.4 - 12.3 fL [facility] Neutrophils Percent Auto 64.4 45 - 73 % [facility] Imm Gran Pct Auto 0.6(H) 0.0 - 0.4 % [facility] Lymphocytes Percent Auto 27.3 20 - 40 % [facility] Monocytes Percent Auto 6.8 2 - 11 % [facility] Eosinophils Percent Auto 0.8 0 - 4 % [facility] Basophils Percent Auto 0.1 0 - 2 % [facility] NRBC Pct Auto 0.0 0.0 - 0.2 /100WBC [facility] Neutrophils Absolute Auto 4.6 2.0 - 8.3 x10*3/uL [facility] Imm Gran Abs Auto 0.04(H) 0.00 - 0.03 X10*3/uL [facility] Lymphocytes Absolute Auto 1.9 1.2 - 4.9 X10*3/uL [facility] Monocytes Absolute Auto 0.5 0.1 - 1.2 X10*3/uL [facility] Eosinophils Absolute Auto 0.1 0.0 - 0.4 X10*3/uL [facility] Basophils Absolute Auto 0.0 0.0 - 0.2 X10*3/uL [facility] NRBC Abs Auto 0.000 0.0 - 0.012 X10*3/uL [facility] Blood Venous blood specimen / Unknown 07/06/2024 9:38 AM EST 07/06/2024 11:32 AM EST [facility] LAB BLOOD ORDERABLES Giselle leavitt Result [facility] [address] [place] [phone] * Hemoglobin A1c (07/06/2024 9:38 AM EST) Hemoglobin A1c 5.6 <6.0 % [facility] Comment:Hemoglobin A1C Refer ence Range Adults: 4.8 - 6.0 % Non diabetic: < 6.0 % Goal: < 7.0 %Additional Action Suggested: > 8.0 %Note: Hemoglobin A1c results are invalid for patients with abnormal amounts of HbF. Blood transfusions may impact the HbA1c concentration in the patient sample. Estimated Average Glucose 114 mg/dL [facility] Comment:eAG = Estimated ave rage glucose which is %A1C expressed asaverage glucose, using the formula of the J7Y-ZmyyuweMxcjymr Glucose study (ADAG), Diabetes Care, Vol.31,#8,Jan. 2007 Blood Venous blood specimen / Unknown 07/06/2024 9:38 AM EST 07/06/2024 11:32 AM EST [facility] LAB BLOOD ORDERABLES Giselle l Result Performing Organization Address [facility] Co de Phone Number [facility] [address] [place] [address] [phone] * (ABNORMAL) Lipid Panel, Standard (07/06/2024 9:38 AM EST) Triglycerides 147 <150 mg/dL [facility] Comment:Desirable Triglyceri de: less than 150 mg/dLBorderline High Triglyceride 150-199 mg/dLHigh Triglyceride: 200-499 mg/dLVery High Triglyceride: greater than or equal to 5OO mg/dL Cholesterol 182 <200 mg/dL [facility] Comment:Desirable Cholestero l: less than 200 mg/dLBorderline High Cholesterol: 200-239 mg/dLHigh Cholesterol: greater than 239 mg/dL LDL Cholesterol Calculated 100(H) <100 mg/dL [facility] Comment:Desirable LDL: less than 100 mg/dLNear Optimal/Above Optimal LDL: 110- 129 mg/dLBorderline High LDL: 130-159 mg/dLHigh LDL: 160-189 mg/dLVery High LDL: greater than or equal to 190 mg/dL HDL Cholesterol 53 >40 mg/dL [facility] Comment:Desirable HDL: great er than 40 mg/dL Note: This HDL assay may give artificially low results in patients with liver disease. Blood Venous blood specimen / Unknown 07/06/2024 9:38 AM EST 07/06/2024 11:32 AM EST [facility] LAB BLOOD ORDERABLES Giselle l Result Performing Organization Address [facility]/ZIP Co de Phone Number [facility] [address] [place] [address] [phone] * Cologuard?? colon cancer screening (10/22/2023 7:55 AM EDT) Cologuard Result Negative Negative 10/29/19 5:43 PM EDT [employer] [facility] (CLIA #:[id number]) Comment: NEGATIVE TEST RESULT. A negative Cologuard [...] Klein et al, N Engl J Med 2014;370(14):1286- 1297) The normal value (reference range) for this assay is negative. COLOGUARD RE-SCREENING RECOMMENDATION: Periodic colorectal cancer screening is an important part of preventive healthcare for asymptomatic individuals at average risk for colorectal cancer. ??Following a negative Cologuard result, the [employer] Cancer Society and U.S. Multi-Society Task Force screening guidelines recommend a Cologuard re-screening interval of 3 years. References: [employer] Society Guideline for Colorectal Cancer Screening: https://www.cancer.org/cancer/gqsqh-eqqjsw-xdbryk/nexyxpqyy-rpijdxkge-xvqlhix/ac s-rec ommendations.html.; Juancarlos DK, Cheyanne MONTES DE OCA, German MaldonadoK, Colorectal Cancer Screening: Recommendations for Physicians and Patients from the U.S. Multi-Society Task Force on Colorectal Cancer Screening , Am J Gastroenterology 2017; 112:9707-0960. TEST DESCRIPTION: Composite algorithmic analysis of stool [...] (Cody Aiken al, N Engl J Med 2014;370(14):1761-7990.) Cologuard may produce a false negative or false positive result (no colorectal cancer or precancerous polyp present at colonoscopy follow up). A negative Cologuard test result does not guarantee the absence of CRC or advanced adenoma (pre-cancer). The current Cologuard screening interval is every 3 years. ([employer] Society and U.S. Multi-Society Task Force). Cologuard performance data in a 10,000 patient pivotal study using colonoscopy as the reference method can be accessed at the following location: www.Druidly/results. Additional description of the Cologuard test process, warnings and precautions can be found at www.[employer]rd.Goodzer. Stool specimen (specimen) 10/22/2023 7:55 AM EDT 10/23/2023 12:10 PM EDT Lexi Lares MD LAB MOLECULAR DIAGNOSTICS DIEUDONNE GARZA Final Result [employer] [facility] (CLIA #:[id number]) [place] [address] [place] [address], * BI Mammogram Screening Tomosynthesis Bilateral (10/17/2023 2:44 PM EDT) Anatomical Region Laterality Modality Breast Bilateral Mammography 10/17/2023 2:44 PM EDT Narrative 11/18/2023 7:08 AM EDT ? [facility] ? [address] ?[place] [address] ? Mammography Report ? Signed ? Patient: Bill,Patricia ?MR#: [id number] ?? [id number] ? : 1970 ?Acct:[id number] ? Age/Sex: 53 / F ?ADM Date: 05/16/24 ? Loc: HO.MAMMO ? Attending Dr: Lexi Lares MD ? Ordering Physician: Lexi Lares ?Results: 2Benign F ?? indings ? Date of Service: 10/17/23 ?Follow Up: 1 Year From Orig ?? inal Mammogram ? Procedure(s): MM tomosynthesis screening BI ?? Accession Number(s): [id number] ? cc: Lexi Lares ? EXAMINATION: ?? [...] 07 ? DD/ 1444 ? TD/TT: ? Motor Installer: ? Procedure Note Donotmaniinterpreter, Image - 11/18/2023 Kody [facility] [address] [place], [place] [address] Mammography Report Signed Patient: Shell Khan#: [id number] : 1970Acct:[id number] Age/Sex: 53 / FADM Date: 10/17/23 Loc: HO.MAMMO Attending Dr: Lexi Lares MD Ordering Physician: Kj Laresults: 2Benign F indings Date of Service: 10/17/23Follow Up: 1 Year From Orig inal Mammogram Procedure(s): MM tomosynthesis screening BI Accession Number(s): [id number] cc: Lexi Lares EXAMINATION: MM SCREENING DIGITAL [...] in OV> 11/18/23 0705 DD/ 1444 TD/TT: Motor Installer: Lexi Lares MD IMG BI PROCEDURES Final Result * Hepatitis C Antibody with Reflex to HCV, RNA, Quantitative, Real-Time PCR (10/04/2023 3:09 PM EDT) Hepatitis C Antibody Nonreactive Nonreactive [facility] Comment:Antibodies to HCV no t detected; does not exclude early acuteHCV infection. Blood Venous blood specimen / Unknown 10/04/2023 3:09 PM EDT 10/04/2023 4:02 PM EDT Lexi Lares MD LAB BLOOD ORDERABLES Final Res ult [facility] [address] [place] [address] [phone] * HIV-1/2 Antigen and Antibodies, Fourth Generation, with Reflexes (10/04/2023 3:09 PM EDT) HIV AB/AG Nonreactive Nonreactive [facility] Comment:HIV-1 p24 Ag and/or HIV-1/HIV-2 Ab not detected.A test result that is nonreactive does not exclude thepossibility of exposure to or infection with HIV-1 and/orHIV-2. Nonreactive results in this assay for individualswith prior exposure to HIV-1 and/or HIV-2 may be due toantigen and antibody levels that are below the limit ofdetection of this assay.The RECCY HIV Ag/Ab Combo assay result andsupplemental assay results should be interpreted inconjunction with the patient's clinical presentation,history and other laboratory results. If the results areinconsistent with clinical evidence, additional testing issuggested to confirm the result. Blood Venous blood specimen / Unknown 10/04/2023 3:09 PM EDT 10/04/2023 4:02 PM EDT Lexi Lares MD LAB BLOOD ORDERABLES Final Res ult [facility] [address] [place] [address] [phone] * Thinprep TIS PAP And HPV mRNA E6/E7 With Reflex To HPV 16,18/45 (10/23/2022 3:20 PM EDT) Clinical Information: 52 YEAR OLD FEMALE WITH NO VAGINAL [email or web address].comt LMP: 20,230,517 [email or web address][employer]comt Prev. PAP: NONE GIVEN [email or web address][employer]comt Prev. BX: NO [email or web address][employer]comt SOURCE: None given [employer] Statement Of Adequacy: [facility] Comment: Satisfactory for evaluation. Endocervical/transformation zone component present. Interpretation/ Result: Negative for intraepithelial lesion or malignancy. [employer] COMMENT: This Pap test has been evaluated with computer assisted technology. [employer] Cytotechnologis t: [employer] Comment: KR, CT(ASCP) CT screening location: [address] ??[phone] (Always Message) [employer] Comment: EXPLANATORY NOTE: The Pap is a [...] HPV nRNA E6/E7 Not Detected Not Detected [employer] Comment: Methodology: Contract Attorney-Mediated Amplification This assay detects E6/E7 viral messenger RNA (mRNA) from 14 high-risk HPV types (16,18,31,33,35,39,45,51,52,56,58,59,66,68). Cervical sources are required for HPV testing. If a vaginal source from a patient who has had a total hysterectomy with removal of cervix was submitted, please contact the testing laboratory for alternative testing options. For additional information, please refer to http://education.Nacuii/faq/YAT279x2 (This link if provided for information/ educational purposes only.) Genital 10/23/2022 3:20 PM EDT 10/24/2022 6:47 AM EDT [facility] [employer] LAB PATHOLOGY ORDERABLES F inal Result [facility] [address], [place] [phone] [employer] [facility] [address] [place] [phone] from Last 3 Months or Most Recently Relevant to Health Maintenance Insurance [facility] Care Teams Care Director Rn Relationship Specialty Start Date End Date Lexi Lares MD [address] [place] [phone] PCP - General Family Medicine 03/12/23
--- OUTSIDE RECORDS SUMMARY | 2024-10-01 15:49 | XMS_ITS | Encounter Summary ---
Author Organization [employer] Address [address] [place] [address] [address] [place] [address] Care Team Providers Care Lehr Attendant Name Role Phone Lexi Lares MD Primary Care Provider [phone] Reason for Referral * Imaging (Routine) - Authorized Specialty Diagnoses / Procedures Referred By Contac t Referred To Contact Radiology Diagnoses Pelvic pain Procedures US Pelvis Transvaginal Bobby Álvarez MD [address] [place] [address] Phone: tel: fax: [address] Phone: tel: fax: Referral ID Status Reason Start Date Expiration Date V isits Requested Visits Authorized [id number] Authorized 10/01/2024 10/01/2025 1 1 Reason for Visit * Reason Comments Back Pain Encounter Details Date Type Department Care Team (Late st Contact Info) Description 10/01/2024 9:20 AM EDT Office Visit [facility] [address] [place], [place] [phone] Bobby Álvarez MD [address] [place], [place] [phone] Pelvic pain (Primary Dx); Low back pain, unspecified back pain laterality, unspecified chronicity, unspecified whether sciatica present Social History Tobacco Use Types Packs/Day Years [...] (135 lb) 10/01/2024 9:15 AM EDT Height - - Body Mass Index 27.27 07/03/2024 10:32 AM EST documented in this encounter Progress Notes * Adán Nino [place] - 10/01/2024 9:20 AM EDT Back pa Subjective History was provided by the patient. Patricia Khan is a 54 y.o. female who presents for evaluation of low back pain radiating into the groin area for 1 week. Denies fall or injury. No change in activity. Works in a daycare with frequent lifting. Pain is worse when leaning forward, but improves when lying down. Denies any pain radiating down to lower extremities. Denies focal weakness. Pain in the right groin area. Concern of recurring ovarian cyst. History of cystectomy many years ago. Recent U/S (03/2024) showing two small leiomyoma (2.3cm and 0.9cm) and <2cm left simple cyst vs. Follicle (states her pain is on the right side). Patient inquiring about a repeat U/S. LMP was 06/2024. Objective Vitals: 10/01/24 0915 BP: 135/77 BP Location: Right arm Patient Position: Sitting BP Cuff Size: Adult Pulse: 99 Resp: 16 Temp: 98.1 ??F (36.7 ??C) TempSrc: Temporal SpO2: 98% Weight: 135 lb (61.2 kg) Physical Exam Vitals reviewed. Constitutional: Appearance: Normal appearance. She is normal weight. HENT: Head: Normocephalic and atraumatic. Right Ear: External ear normal. Left Ear: External ear normal. Nose: Nose normal. Mouth/Throat: Mouth: Mucous membranes are moist. Pharynx: Oropharynx is clear. Eyes: Extraocular Movements: Extraocular movements intact. Conjunctiva/sclera: Conjunctivae normal. Pulmonary: Effort: Pulmonary effort is normal. Abdominal: General: Abdomen is flat. There is no distension. Palpations: Abdomen is soft. Tenderness: There is no abdominal tenderness. There is no right CVA tenderness, left CVA tenderness, guarding or rebound. Musculoskeletal: General: Normal range of motion. Cervical back: Neck supple. Comments: Tenderness at the bilateral SI joint areas; no deformity; no lordosis or scoliosis; FROM at bilateral hips; negative straight leg raise; motor 5/5 BLE Skin: General: Skin is warm and dry. Neurological: General: No focal deficit present. Mental Status: She is alert and oriented to person, place, and time. Psychiatric: Mood and Affect: Mood normal. Behavior: Behavior normal. Office Visit on 10/01/2024 Component Date Value Ref Range Status Color, UA 10/01/2024 Yellow Final Clarity, UA 10/01/2024 Clear Final Glucose, UA 10/01/2024 Negative Final Bilirubin, UA 10/01/2024 Negative Final Ketones, UA 10/01/2024 Negative Final Spec Grav, UA 10/01/2024 1.025 Final Blood, UA 10/01/2024 Positive (A) Negative, None Detected Final small pH, UA 10/01/2024 5.5 Final Protein, UA 10/01/2024 Negative Final Urobilinogen, UA 10/01/2024 0.2 Final Leukocytes, UA 10/01/2024 Negative Negative, Rare, Trace Final Nitrite, UA 10/01/2024 Negative Negative, None Detected Final Appearance, UA 10/01/2024 OK Final Preg Test, Ur 10/01/2024 Negative Negative, Indeterminate, None Detected, Invalid, Specimen unsatisfactory for evaluation, Weakly Positive Final Patricia was seen today for back pain. Diagnoses and all orders for this visit: Pelvic pain (Primary) - US Pelvis Transvaginal; Future - POCT , urine manually resulted Low back pain, unspecified back pain laterality, unspecified chronicity, unspecified whether sciatica present - POCT urinalysis dipstick manually resulted - Culture, Urine, Routine - cyclobenzaprine (Flexeril) 10 MG tablet; One tab PO at bedtime prn back pain, do not drive with medicaion Patient presents to [facility] with to non-traumatic LBP Suspect sacroiliitis given clinical presentation Discussed treatment options Recommended to continue Ibuprofen prn Cyclobenzaprine prn at night Potential adverse effects of the medication reviewed Lia-menopausal; negative POC HCG today Also recommended SI belt Rehabilitative exercise handout provided Given history of ovarian cyst s/p cystectomy and patient request, will pursue repeat Pelvic U/S Indications for UC/ER use reviewed Advised to contact the clinic if persistent or worsening symptoms documented in this encounter Plan of Treatment Upcoming Encounters Date Type Department Care Team (Late st Contact Info) Description 10/15/2024 3:15 PM EDT Office Visit [facility] OPT[facility] [address] [place] [address] Brandee Lopez, OD [address] [place] [address] Scheduled Orders Name Type Priority Associated Diagnoses Orde r Schedule Culture, Urine, Routine Microbiology Routine Low back pain, unspecified back pain laterality, unspecified chronicity, unspecified whether sciatica present Ordered: 10/01/2024 US Pelvis Transvaginal Imaging Routine Pelvic pain Expected: 10/01/2024, Expires: 10/01/2025 documented as of this encounter Procedures Procedure Name Priority Date/Time Associated Diagnosis Comments POCT , URINE Routine 10/01/2024 9:50 AM EDT Pelvic pain POCT URINALYSIS DIPSTICK Routine 10/01/2024 9:22 AM EDT Low back pain, unspecified back pain laterality, unspecified chronicity, unspecified whether sciatica present documented in this encounter Results * POCT , urine manually resulted [...] OK Urine 10/01/2024 9:22 AM EDT Bobby Álvarze MD POINT OF CARE TEST ENTER/EDIT OR DERABLES Final Result documented in this encounter Visit Diagnoses Diagnosis Pelvic pain- Primary Low back pain, unspecified back pain laterality, unspecified chronicity, unspecified whether sciatica present documented in this encounter Additional Health Concerns Assessment Noted Time PHQ-9 Depression Total Score: 0 10/04/19 24 2:57 PM EDT documented as of this encounter Care Teams Lehr Attendant Relationship Specialty Start Date End Date Lexi Lares MD [address] [place] [phone] PCP - General Family Medicine 03/12/23 documented as of this encounter
--- OUTSIDE RECORDS SUMMARY | 2024-10-01 15:49 | XMS_ITS | Encounter Summary ---
Author Organization [employer] Address [address] [facility] [address] [place] [address] Care Team Providers Care Livestock Haulier Name Role Phone Lexi Lares MD Primary Care Provider [phone] Encounter Details Date Type Department Care Team (Latest Contact Info) Description 10/01/2024 Travel Social History Tobacco Use Types Packs/Day Years [...] AM EDT documented as of this encounter Plan of Treatment Upcoming Encounters Date Type Department Care Team (Late st Contact Info) Description 10/15/2024 3:15 PM EDT Office Visit [facility] OPT[facility] [address] [place] [address] Brandee Lopez, OD [address] [place] [address] documented as of this encounter Visit Diagnoses Not on filedocumented in this encounter Additional Health Concerns Assessment Noted Time PHQ-9 Depression Total Score: 0 10/04/19 24 2:57 PM EDT documented as of this encounter Care Teams Livestock Haulier Relationship Specialty Start Date End Date Lexi Lares MD [address] [place] [address] PCP - General Family Medicine 03/12/23 documented as of this encounter
== END 2024-10-01 13:26 | disposition home or self-care (01) ==
LOC: HO.HHCLNP 13:25
PROVIDERS: Visit Provider Family Medicine
DX: M54.50 Low back pain, unspecified (principal)
CPT/HCPCS: 87086

== ENCOUNTER 2024-10-22 14:17 | Outpatient (REF) | payer OTHER, SELFPAY ==
--- OUTSIDE RECORDS SUMMARY | 2024-10-22 14:24 | XMS_ITS | Clinical Summary ---
Author Organization [employer] Address [address] [place] [address] 7t [place] [address] Care Team Providers Care Manager Performance Improvement Name Role Phone Lexi Lares MD Primary Care Provider [phone] Allergies Active Allergy Reactions Criticality Noted Date [...] Encounters Date Type Department Care Team Description 10/15/2024 3:15 PM EDT Office Visit [facility] OPTOMET[facility] [address] [place] [phone] Brandee Lopez, OD Presbyopia (Primary Dx) 10/15/2024 Travel 10/08/2024 Telephone [facility] [address] [place] [phone] Bobby Álvarez MD 10/08/2024 Telephone [facility] [address] [place] [phone] Bobby Álvarez MD 10/01/2024 9:20 AM EDT Office Visit [facility] [address] [place] [phone] Bobby Álvarez MD Pelvic pain (Primary Dx); Low back pain, unspecified back pain laterality, unspecified chronicity, unspecified whether sciatica present 10/01/2024 Travel 09/04/2024 Telephone [facility] MEDICINE [address] [place] [phone] Lexi Lares MD Nurse Triage from Last 3 Months Immunizations Immunization Administration Dates Next Due Hep A, Adult [...] 1972 FIT 1972 FOBT 1972 Sigmoidoscopy 1972 Disability Screening 1972 Alcohol/Substance Use Screening 1984 Family Planning (PISQ) 1987 Hepatitis B Vaccines (2 of 3 - 19+ 3-dose series) 03/15/2014 02/15/2014, 07/13/2003, 06/19/2002, Additional history exists Pneumococcal Vaccine: 50+ Years (1 of 1 - PCV) 2022 Depression Screening 10/03/2024 10/04/2023, 10/04/19 24 SDOH Screening 06/23/2025 06/23/2024 Tobacco Screening 10/15/2025 10/15/2024 Mammogram 10/16/2025 10/17/2023, 06/03, 01/28/2019 Pap Smear [...] patient's age to complete this topic Meningococcal B Vaccine Aged Out No l onger eligible based on patient's age to complete [...] Routine 10/01/2024 9:50 AM EDT Pelvic pain CULTURE, URINE, ROUTINE Routine 10/01/2024 9:23 AM EDT Low back pain, unspecified back pain laterality, unspecified chronicity, unspecified whether sciatica present POCT URINALYSIS DIPSTICK Routine 10/01/2024 9:22 AM EDT Low back pain, unspecified back pain laterality, unspecified chronicity, unspecified whether sciatica present LAB COLOGUARD?? COLON CANCER SCREEN Routine 10/22/2023 [...] TEST ENTER/EDIT OR DERABLES Final Result * Culture, Urine, Routine (10/01/2024 9:23 AM EDT) Urine Urine specimen obtained by clean catch procedure / Unknown 10/01/2024 9:23 AM EDT 10/01/2024 1:26 PM EDT Comment:[facility] Narrative [facility] - 10/02/2024 9:20 AM EDT Urine Culture No growth. Specimen Source: Urine clean catch us Bobby Álvarez MD LAB MICROBIOLOGY - GENERAL ORDER MANASA Final Result [facility] [address] [place] [phone] * (ABNORMAL) POCT urinalysis dipstick manually resulted [...] TEST ENTER/EDIT OR DERABLES Final Result * Cologuard?? colon cancer screening (10/22/2023 7:55 AM EDT) Cologuard Result Negative Negative 10/29/19 5:43 PM EDT [facility] (CLIA #:[id number]) Comment: NEGATIVE TEST RESULT. A negative Cologuard [...] cancer. ??Following a negative Cologuard result, the [place] Cancer Society and U.S. Multi-Society Task Force screening guidelines recommend a Cologuard re-screening interval of 3 years. References: [place] [employer] Guideline for Colorectal Cancer Screening: https://www.cancer.org/cancer/ukzxx-zvidta-ufaudp/lmtcgoblg-nzyxzsvne-vqbyljc/ac s-rec ommendations.html.; Juancarlos DK, Cheyanne MONTES DE OCA, German WALKER, Colorectal Cancer Screening: Recommendations for Physicians and Patients from the U.S. Multi-Society Task Force on Colorectal Cancer Screening , Am J Gastroenterology 2017; 112:2095-8880. TEST DESCRIPTION: Composite algorithmic analysis of stool [...] (Cody Aiken al, N Engl J Med 2014;370(14):2910-1160.) Cologuard may produce a false negative or false positive result (no colorectal cancer or precancerous polyp present at colonoscopy follow up). A negative Cologuard test result does not guarantee the absence of CRC or advanced adenoma (pre-cancer). The current Cologuard screening interval is every 3 years. ([place] [employer] Society and U.S. Multi-Society Task Force). Cologuard performance data in a 10,000 patient pivotal study using colonoscopy as the reference method can be accessed at the following location: www.[employer]/results. Additional description of the Cologuard test process, warnings and precautions can be found at www.[employer]al[employer]. Stool specimen (specimen) 10/22/2023 7:55 AM EDT 10/23/2023 12:10 PM EDT Lexi Lares MD LAB MOLECULAR DIAGNOSTICS DIEUDONNE GARZA Final Result [facility] (CLIA #:[id number]) [place] [place] [address], * BI Mammogram Screening Tomosynthesis Bilateral (10/17/2023 2:44 PM EDT) Anatomical Region Laterality Modality Breast Bilateral Mammography 10/17/2023 2:44 PM EDT Narrative 11/18/2023 7:08 AM EDT ? [facility] [place] ? [address] ?[place] [address] ? Mammography Report ? Signed ? Patient: Bill,Patricia ?MR#: [id number] ?? [id number] ? : 1970 ?Acct:[id number] ? Age/Sex: 53 / F ?ADM Date: 05/16/24 ? Loc: HO.MAMMO ? Attending Dr: Lexi Lares MD ? Ordering Physician: Lexi Lares ?Results: 2Benign F ?? indings ? Date of Service: 05/16/24 ?Follow Up: 1 Year From Orig ?? inal Mammogram ? Procedure(s): MM tomosynthesis screening BI ?? Accession Number(s): [id number] ? cc: Lexi Lares ? EXAMINATION: ?? MM SCREENING DIGITAL BREAST TOMOSYNTHESIS, BILATERAL ? CLINICAL INFORMATION: ? Screening. Asymptomatic. ? COMPARISON: ?? Mammography: This study is compared with prior exams dating back to ?? 2018. ? TECHNIQUE: ?? Digital breast tomosynthesis is [...] Alyssa Clifford MD in OV> ? 11/18/23 0705 ? DD/ 1444 ? TD/TT: ? Mineral Surveying Technician: ? Procedure Note Imelda Denton - 11/18/2023 [facility] [address] [place] [address] [place] [address] Mammography Report Signed Patient: Soo KhanJoan#: [id number] : 1970Acct:[id number] Age/Sex: 53 / FADM Date: 10/17/23 Loc: HO.MAMMO Attending Dr: Lexi Lares MD Ordering Physician: Kj Laresults: 2Boneil ludwig Date of Service: 10/17/23Follow Up: 1 Year From [facility] Mammogram Procedure(s): MM tomosynthesis screening BI Accession Number(s): [id number] cc: Lexi Lares EXAMINATION: MM SCREENING DIGITAL [...] in OV> 11/18/23 0705 DD/ 1444 TD/TT: Mineral Surveying Technician: Lexi Lares MD IMG BI PROCEDURES Final Result * Hepatitis C Antibody with Reflex to HCV, RNA, Quantitative, Real-Time PCR (10/04/2023 3:09 PM EDT) Hepatitis C Antibody Nonreactive Nonreactive [facility] Comment:Antibodies to HCV no t detected; does not exclude early acuteHCV infection. Blood Venous blood specimen / Unknown 10/04/2023 3:09 PM EDT 10/04/2023 4:02 PM EDT Lexi Lares MD LAB BLOOD ORDERABLES Final Res ult Performing Organization Address [facility] Co de Phone Number [facility] [address] [place] [phone] * HIV-1/2 Antigen and Antibodies, Fourth Generation, with Reflexes (10/04/2023 3:09 PM EDT) HIV AB/AG Nonreactive Nonreactive [facility] Comment:HIV-1 p24 Ag and/or HIV-1/HIV-2 Ab not detected.A test result that is nonreactive does not exclude thepossibility of exposure to or infection with HIV-1 and/orHIV-2. Nonreactive results in this assay for individualswith prior exposure to HIV-1 and/or HIV-2 may be due toantigen and antibody levels that are below the limit ofdetection of this assay.The [employer] HIV Ag/Ab Combo assay result andsupplemental assay results should be interpreted inconjunction with the patient's clinical presentation,history and other laboratory results. If the results areinconsistent with clinical evidence, additional testing issuggested to confirm the result. Blood Venous blood specimen / Unknown 10/04/2023 3:09 PM EDT 10/04/2023 4:02 PM EDT Lexi Lares MD LAB BLOOD ORDERABLES Final Res ult Performing Organization Address [facility] Co de Phone Number [facility] [address] [place] [phone] * Thinprep TIS PAP And HPV mRNA E6/E7 With Reflex To HPV 16,18/45 (10/23/2022 3:20 PM EDT) Clinical Information: 52 YEAR OLD FEMALE WITH NO VAGINAL [facility] LMP: [phone] [facility] Prev. PAP: NONE GIVEN [facility] Prev. BX: NO [facility] SOURCE: None given [facility] [employer] Statement Of Adequacy: [employer] Comment: Satisfactory for evaluation. Endocervical/transformation zone component present. Interpretation/ Result: Negative for intraepithelial lesion or malignancy. [employer] COMMENT: This Pap test has been evaluated with computer assisted technology. [employer] Cytotechnologis t: [employer] Comment: KR, CT(ASCP) CT screening location: [address] ??[phone] (Always Message) [facility] Comment: EXPLANATORY NOTE: The Pap is a [...] HPV nRNA E6/E7 Not Detected Not Detected [employer] Comment: Methodology: Service Tech-Mediated Amplification This assay detects E6/E7 viral messenger RNA (mRNA) from 14 high-risk HPV types (16,18,31,33,35,39,45,51,52,56,58,59,66,68). Cervical sources are required for HPV testing. If a vaginal source from a patient who has had a total hysterectomy with removal of cervix was submitted, please contact the testing laboratory for alternative testing options. For additional information, please refer to http://education.DoctorC/faq/TCZ182c7 (This link if provided for information/ educational purposes only.) Genital 10/23/2022 3:20 PM EDT 10/24/2022 6:47 AM EDT us Solange Noyola TUMBLER MACHINE OPERATOR HELPER LAB PATHOLOGY ORDERABLES F inal Result CHIKIS Monge [address], [place] [address] [facility] [employer] [address] [place] [phone] from Last 3 Months or Most Recently Relevant to Health Maintenance Insurance [facility] Care Teams Manager Performance Improvement Relationship Specialty Start Date End Date Lexi Lares MD [address] [place] [address] PCP - General Family Medicine 03/12/23
== END 2024-10-22 14:18 | disposition home or self-care (01) ==
LOC: HO.MAMMO 14:17
PROVIDERS: PCP General Practice; Visit Provider General Practice
DX: Z12.31 Encounter for screening mammogram for malignant neoplasm of breast (principal)
CPT/HCPCS: 77063; 77067

== ENCOUNTER → 2024-10-22 14:30 | Outpatient (BNV) | payer OTHER, SELFPAY | PROVIDERS: PCP General Practice; Visit Provider Internal Medicine | DX: Z12.31 Encounter for screening mammogram for malignant neoplasm of breast (principal) | CPT/HCPCS: 77063; 77067 ==

== ENCOUNTER 2024-11-20 14:38 | Outpatient (REF) | payer OTHER, SELFPAY ==
--- NOTE | ~2024-11-20 | US_ITS ---
EXAMINATION: US PELVIS CLINICAL INFORMATION: Ovarian cyst, status post cystectomy COMPARISON: March 14, 2024 TECHNIQUE: Ultrasound of the pelvis is performed using both transabdominal and transvaginal transducers along with Doppler. Transvaginal imaging is performed due to inadequate visualization transabdominally. FINDINGS: Uterus: The uterus measures 8.1 x 3.6 x 4.2 cm. The double wall endometrial thickness is 7 mm. The posterior myometrium, there is a 15 x 16 mm hypoechoic intramural leiomyoma area, previously 20 x 23 mm. Lobulated subserosal leiomyoma in the right fundus measures 7 x 9 mm previously 10 x 10 mm. Adnexa: The right ovary is surgically absent.. There is normal color flow to the left adnexa. There is no ovarian torsion. There is no pelvic ascites or fluid collection. Right oophorectomy. Left ovary measures 2.1 x 1.8 x 2.2 cm. Multiple small cysts or follicles are present. US/US pelvic and transvaginal IMPRESSION: 2 small uterine leiomyomas are decreased in size. Right oophorectomy. Otherwise, unremarkable. Electronically signed by: Matt Hall MD 11/20/2024 03:43 PM EDT
--- OUTSIDE RECORDS SUMMARY | 2024-11-20 14:41 | XMS_ITS | Clinical Summary ---
Author Organization [employer] Address [address] [place] [address] [address] [place] [address] Care Team Providers Care Supervisor [place] Name Role Phone Lexi Lares MD Primary Care Provider [phone] Allergies Active Allergy Reactions Criticality Noted Date [...] Encounters Date Type Department Care Team Description 10/22/2024 Orders Only [facility] MEDICINE [address] [place] [phone] Lexi Lares MD 10/15/2024 3:15 PM EDT Office Visit [facility] OPTOMETRY [address] [place] [address] Brandee Lopez OD Presbyopia (Primary Dx) 10/15/2024 Travel 10/08/2024 Telephone [facility] [address] [place] [phone] Bobby Álvarez MD 10/08/2024 Telephone [facility] [address] [place] [address] Bobby Álvarez MD 10/01/2024 9:20 AM EDT Office Visit [facility] [address] [place] [phone] Bobby Álvarez MD Pelvic pain (Primary Dx); Low back pain, unspecified back pain laterality, unspecified chronicity, unspecified whether sciatica present 10/01/2024 Travel 09/04/2024 Telephone [facility] MEDICINE [address] [place] [address] Lexi Lares MD Nurse Triage from Last [...] the past 12 months, has t he [employer], gas, oil or water company threatened to [...] 99 10/01/2024 9:15 AM EDT Temperature 36.7 C (98.1 F) 10/01/2024 9:15 AM EDT Respiratory Rate 16 10/01/2024 9:15 AM EDT [...] Screening 06/23/2025 06/23/2024 Tobacco Screening 10/15/2025 10/15/2024 Pap Smear 10/23/2025 10/23/2022 Colorectal Cancer Screening 10/21/2026 FIT DNA/Cologuard 10/21/2026 10/22/2023 Mammogram 10/22/2026 10/22/2024, 10/01, 06/20/2021, Additional history exists Cervical Cancer Screening 10/24/2027 HPV/Cotest 10/24/2027 10/23/2022 [...] Procedure Name Priority Date/Time Associated Diagnosis Comments BI MAMMOGRAM SCREENING TOMOSYNTHESIS BILATERAL Routine 10/22/2024 2:21 PM EDT POCT , URINE Routine 10/01/2024 9:50 AM EDT Pelvic pain CULTURE, URINE, ROUTINE Routine 10/01/2024 9:23 AM EDT Low back pain, unspecified back pain laterality, unspecified chronicity, unspecified whether sciatica present POCT URINALYSIS DIPSTICK Routine 10/01/2024 9:22 AM EDT Low back pain, unspecified back pain laterality, unspecified chronicity, unspecified whether sciatica present LAB COLOGUARD COLON CANCER SCREEN Routine 10/22/2023 7:55 AM EDT Screening for colon cancer HEPATITIS C AB W/REFL TO HCV [...] Recently Relevant to Health Maintenance Results * BI Mammogram Screening Tomosynthesis Bilateral (10/22/2024 2:21 PM EDT) Anatomical Region Laterality Modality Breast Bilateral Mammography 10/22/2024 2:21 PM EDT Narrative 10/31/2024 11:54 AM EDT [facility] [address] [place] [address] Mammography Report Signed Patient: Patricia Khan MR#: [id number] : 1970 Acct:[id number] Age/Sex: 54 / F ADM Date: 10/22/24 Loc: [facility] Attending Dr: Lexi Lares MD Ordering Physician: Lexi Lares Results: 1Negative Date of Service: 10/22/24 Follow Up: 1 Year From Orig inal Mammogram Procedure(s): MM tomosynthesis screening BI Accession Number(s): [id number] cc: Lexi Lares EXAMINATION: MM SCREENING DIGITAL BREAST TOMOSYNTHESIS, BILATERAL CLINICAL INFORMATION: Screening. Asymptomatic. COMPARISON: Mammography: Comparison is made with available priors TECHNIQUE: Digital breast mammography with tomosynthesis is performed in both the craniocaudal and mediolateral oblique views along with computer-aided detection (CAD). FINDINGS: The breasts are heterogeneously dense, which may obscure small masses (ACR BI-RADS breast composition Category c). There are no significant masses, abnormal calcifications, or other abnormalities. MM/MM tomosynthesis screening BI IMPRESSION: No mammographic evidence of malignancy. ASSESSMENT: BI-RADS BI-RADS 1 - Negative RECOMMENDATION: Routine annual mammography screening. 1 year F/U This examination should not preclude the clinical evaluation of a suspicious palpable abnormality. This patient's information was entered into a reminder system with a target due date for their next mammogram. Electronically signed by: Marta Joseph DO 10/31/2024 11:52 AM EDT RP Dictated By: Marta Joseph DO Signed By: <Electronically signed by Marta Joseph DO in OV> 10/31/24 1152 DD/ 1421 TD/TT: 10/22/24 1440 Print Developer: Procedure Note Donotuseinterpreter, Image - 10/31/2024 [facility] [address] [place] [address] Mammography Report Signed Patient: Soo KhanR#: [id number] : 1970Acct:[id number] Age/Sex: 54 / FADM Date: 10/22/24 Loc: HO.MAMMO Attending Dr: Lexi Lares MD Ordering Physician: Kj Laresults: 1Negative Date of Service: 10/22/24Follow Up: 1 Year From Orig inal Mammogram Procedure(s): MM tomosynthesis screening BI Accession Number(s): [id number] cc: Lexi Lares EXAMINATION: MM SCREENING DIGITAL BREAST TOMOSYNTHESIS, BILATERAL CLINICAL INFORMATION: Screening. Asymptomatic. COMPARISON: Mammography: Comparison is made with available priors TECHNIQUE: Digital breast mammography with tomosynthesis is performed in both the craniocaudal and mediolateral oblique views along with computer-aided detection (CAD). FINDINGS: The breasts are heterogeneously dense, which may obscure small masses (ACR BI-RADS breast composition Category c). There are no significant masses, abnormal calcifications, or other abnormalities. MM/MM tomosynthesis screening BI IMPRESSION: No mammographic evidence of malignancy. ASSESSMENT: BI-RADS BI-RADS 1 - Negative RECOMMENDATION: Routine annual mammography screening. 1 year F/U This examination should not preclude the clinical evaluation of a suspicious palpable abnormality. This patient's information was entered into a reminder system with a target due date for their next mammogram. Electronically signed by: Marta Joseph DO 10/31/2024 11:52 AM EDT Dictated By: Marta Joseph DO Signed By: <Electronically signed by Marta Joseph DO in OV> 10/31/24 1152 DD/ 1421 TD/TT: 10/22/24 1440 Print Developer: Lexi Lares MD IMG BI PROCEDURES Final Result * POCT , urine manually resulted (10/01/2024 [...] 9:23 AM EDT 10/01/2024 1:26 PM EDT Comment:[facility] Narrative [facility] - 10/02/2024 9:20 AM EDT Urine Culture No growth. Specimen Source: Urine clean catch Bobby Álvarez MD LAB MICROBIOLOGY - GENERAL ORDER MANASA Final Result [facility] [address] [place] [address] [phone] * (ABNORMAL) POCT urinalysis dipstick manually [...] Result Negative Negative 10/29/19 5:43 PM EDT [facility] (CLIA #:[id number]) Comment: NEGATIVE TEST RESULT. A negative Cologuard result indicates a low likelihood that a colorectal cancer (CRC) or advanced adenoma (adenomatous polyps with more advanced pre-malignant features) is present. The chance that a person with a negative Cologuard test has a colorectal cancer is less than 1 in 1500 (negative predictive value >99.9%) or has an advanced adenoma is less than 5.3% (negative predictive value 94.7%). These data are based on a prospective cross-sectional study of 10,000 individuals at average risk for colorectal cancer who were screened with both Cologuard and colonoscopy. (Cody Aiken al, N Engl J Med 2014;370(14):8533-8437) The normal value (reference range) for this assay is negative. COLOGUARD RE-SCREENING RECOMMENDATION: Periodic colorectal cancer screening is an important part of preventive healthcare for asymptomatic individuals at average risk for colorectal cancer. Following a negative Cologuard result, the [place] [employer] and U.S. Multi-Society Task Force screening guidelines recommend a Cologuard re-screening interval of 3 years. References: [place] [employer] Guideline for Colorectal Cancer Screening: https://www.cancer.org/cancer/uzmjl-lxpevf-rsemem/miwvbhich-behdrkkaw-cqgtsvx/ac s-rec ommendations.html.; Juancarlos DK, Cheyanne CR, German MaldonadoK, Colorectal Cancer Screening: Recommendations for Physicians and Patients from the U.S. Multi-Society Task Force on Colorectal Cancer Screening , Am J Gastroenterology 2017; 112:0921-9837. TEST DESCRIPTION: Composite algorithmic analysis of stool DNA-biomarkers with hemoglobin immunoassay. Quantitative values of individual biomarkers are not [...] (Cody Aiken al, N Engl J Med 2014;370(14):3251-2358.) Cologuard may produce a false negative or false positive result (no colorectal cancer or precancerous polyp present at colonoscopy follow up). A negative Cologuard test result does not guarantee the absence of CRC or advanced adenoma (pre-cancer). The current Cologuard screening interval is every 3 years. ([place] [employer] and U.S. Multi-Society Task Force). Cologuard performance data in a 10,000 patient pivotal study using colonoscopy as the reference method can be accessed at the following location: www.EVERFANS/results. Additional description of the Cologuard test process, warnings and precautions can be found at www.StepOutrd.com. Stool specimen (specimen) 10/22/2023 7:55 AM EDT 10/23/2023 12:10 PM EDT Lexi Lares MD LAB MOLECULAR DIAGNOSTICS ORDE RABDONNY Final Result [facility] (CLIA #:[id number]) [place] [address], * Hepatitis C Antibody with Reflex to HCV, RNA, Quantitative, Real-Time PCR (10/04/2023 3:09 PM EDT) Hepatitis C Antibody Nonreactive Nonreactive [facility] Comment:Antibodies to HCV no t detected; does not exclude early acuteHCV infection. Blood Venous blood specimen / Unknown 10/04/2023 3:09 PM EDT 10/04/2023 4:02 PM EDT Leix Lares MD LAB BLOOD ORDERABLES Final Res ult Performing Organization Address [facility] Co de Phone Number [facility] [address] [place] [phone] * HIV-1/2 Antigen and Antibodies, Fourth Generation, with Reflexes (10/04/2023 3:09 PM EDT) HIV AB/AG Nonreactive Nonreactive [facility] Comment:HIV-1 p24 Ag and/or HIV-1/HIV-2 Ab not detected.A test result that is nonreactive does not exclude thepossibility of exposure to or infection with HIV-1 and/orHIV-2. Nonreactive results in this assay for individualswith prior exposure to HIV-1 and/or HIV-2 may be due toantigen and antibody levels that are below the limit ofdetection of this assay.The [employer] HIV Ag/Ab Combo assay result andsupplemental assay results should be interpreted inconjunction with the patient's clinical presentation,history and other laboratory results. If the results areinconsistent with clinical evidence, additional testing issuggested to confirm the result. Blood Venous blood specimen / Unknown 10/04/2023 3:09 PM EDT 10/04/2023 4:02 PM EDT Lexi Lares MD LAB BLOOD ORDERABLES Final Res ult [facility] [address] [place] [phone] * Thinprep TIS PAP And HPV mRNA E6/E7 With Reflex To HPV 16,18/45 (10/23/2022 3:20 PM EDT) Clinical Information: 52 YEAR OLD FEMALE WITH NO VAGINAL [email or web address] [place] [employer] LMP: [phone] [email or web address] Prev. PAP: NONE GIVEN [email or web address] [place] [employer] Prev. BX: NO [email or web address] [place] [employer] Diagnost SOURCE: None given [email or web address] [place] [employer] Statement Of Adequacy: [email or web address] [place] [employer] Comment: Satisfactory for evaluation. Endocervical/transformation zone component present. Interpretation/ Result: Negative for intraepithelial lesion or malignancy. [email or web address] [place] [employer] COMMENT: This Pap test has been evaluated with computer assisted technology. [email or web address] [place] [employer] Cytotechnologis t: [email or web address] [place] [employer] Comment: KR, CT(ASCP) CT screening location: [address] [address] (Always Message) [email or web address] [place] [employer] Comment: EXPLANATORY NOTE: The Pap is a [...] HPV nRNA E6/E7 Not Detected Not Detected [email or web address] [place] [employer] Comment: Methodology: Cutting Room Supervisor-Mediated Amplification This assay detects E6/E7 viral messenger RNA (mRNA) from 14 high-risk HPV types (16,18,31,33,35,39,45,51,52,56,58,59,66,68). Cervical sources are required for HPV testing. If a vaginal source from a patient who has had a total hysterectomy with removal of cervix was submitted, please contact the testing laboratory for alternative testing options. For additional information, please refer to http://education.Wavo.me/faq/ASY371h1 (This link if provided for information/ educational purposes only.) Genital 10/23/2022 3:20 PM EDT 10/24/2022 6:47 AM EDT Solange Noyola [facility] PATHOLOGY ORDERABLES F inal Result [facility] [address], [place] [address] [email or web address] [facility] [address] [place] [address] from Last 3 Months or Most Recently Relevant to Health Maintenance Insurance [facility] Care Teams Supervisor [place] Relationship Specialty Start Date End Date Lexi Lares MD [address] [place] [address] PCP - General Family Medicine 03/12/23
== END 2024-11-20 14:39 | disposition home or self-care (01) ==
LOC: HO.US 14:38
PROVIDERS: PCP General Practice; Visit Provider Family Medicine
DX: R10.2 Pelvic and perineal pain (principal)
CPT/HCPCS: 76830; 76856

== ENCOUNTER → 2024-11-20 14:44 | Outpatient (BNV) | payer OTHER, SELFPAY | PROVIDERS: PCP General Practice; Visit Provider Radiology Diagnostic Radiology | DX: D25.9 Leiomyoma of uterus, unspecified (principal); N83.292 Other ovarian cyst, left side | CPT/HCPCS: 76830; 76856 ==